=== PATIENT | male | born 1965 ===

== ENCOUNTER 2021-04-26 07:32 | Outpatient (REF) | payer OTHER, SELFPAY | END 2021-04-26 07:33 | disposition home or self-care (01) | LOC: HO.HOSX 07:32 | PROVIDERS: Visit Provider Physician Assistant | DX: Z13.89 Encounter for screening for other disorder (principal) ==

== ENCOUNTER 2021-04-27 07:54 | Outpatient (REF) | payer OTHER, SELFPAY ==
--- NOTE | ~2021-04-27 | XR_ITS ---
EXAMINATION: XR ELBOW, RIGHT XR ELBOW, LEFT CLINICAL INFORMATION: Pain. COMPARISON: Multiple priors, most recent left forearm radiographs dated 11/23/2014. TECHNIQUE: AP, oblique, and lateral views of the right and left elbow. FINDINGS: Right Elbow: No acute fracture or dislocation. No joint space narrowing or marginal osteophytes. No osseous erosion. No abnormal soft tissue calcification. No significant joint effusion. Left Elbow: No acute fracture or dislocation. No joint space narrowing or marginal osteophytes. No osseous erosion. No abnormal soft tissue calcification. No significant joint effusion. XR/XR elbow RT min 3V IMPRESSION: RIGHT ELBOW: Unremarkable examination. LEFT ELBOW: Unremarkable examination.
--- NOTE | ~2021-04-27 | XR_ITS ---
EXAMINATION: XR ELBOW, RIGHT XR ELBOW, LEFT CLINICAL INFORMATION: Pain. COMPARISON: Multiple priors, most recent left forearm radiographs dated 11/23/2014. TECHNIQUE: AP, oblique, and lateral views of the right and left elbow. FINDINGS: Right Elbow: No acute fracture or dislocation. No joint space narrowing or marginal osteophytes. No osseous erosion. No abnormal soft tissue calcification. No significant joint effusion. Left Elbow: No acute fracture or dislocation. No joint space narrowing or marginal osteophytes. No osseous erosion. No abnormal soft tissue calcification. No significant joint effusion. XR/XR elbow LT min 3V IMPRESSION: RIGHT ELBOW: Unremarkable examination. LEFT ELBOW: Unremarkable examination.
== END 2021-04-27 07:55 | disposition home or self-care (01) ==
LOC: HO.HOSX 07:54
PROVIDERS: Visit Provider Physician Assistant
DX: M19.021 Primary osteoarthritis, right elbow (principal); M77.11 Lateral epicondylitis, right elbow; M77.12 Lateral epicondylitis, left elbow
CPT/HCPCS: 73080; 99202; J1020

== ENCOUNTER 2021-05-14 09:22 | Outpatient (REF) | payer OTHER, SELFPAY ==
--- NOTE | ~2021-05-14 | XR_ITS ---
EXAMINATION: XR ELBOW, RIGHT XR ELBOW, LEFT CLINICAL INFORMATION: Pain. COMPARISON: Right and left elbow radiographs dated 04/27/2021. TECHNIQUE: AP, oblique, and lateral views of the right and left elbow. FINDINGS: Right Elbow: No acute fracture or dislocation. No joint space narrowing or marginal osteophytes. No osseous erosion. No significant joint effusion. No abnormal soft tissue calcification. Left Elbow: No acute fracture or dislocation. No joint space narrowing or marginal osteophytes. No osseous erosion. No abnormal soft tissue calcification. No significant joint effusion. XR/XR elbow LT min 3V IMPRESSION: RIGHT ELBOW: No acute osseous abnormality. LEFT ELBOW: No acute osseous abnormality.
--- NOTE | ~2021-05-14 | XR_ITS ---
EXAMINATION: XR ELBOW, RIGHT XR ELBOW, LEFT CLINICAL INFORMATION: Pain. COMPARISON: Right and left elbow radiographs dated 04/27/2021. TECHNIQUE: AP, oblique, and lateral views of the right and left elbow. FINDINGS: Right Elbow: No acute fracture or dislocation. No joint space narrowing or marginal osteophytes. No osseous erosion. No significant joint effusion. No abnormal soft tissue calcification. Left Elbow: No acute fracture or dislocation. No joint space narrowing or marginal osteophytes. No osseous erosion. No abnormal soft tissue calcification. No significant joint effusion. XR/XR elbow RT min 3V IMPRESSION: RIGHT ELBOW: No acute osseous abnormality. LEFT ELBOW: No acute osseous abnormality.
[2021-05-14 12:42] LABS: Alanine Aminotransferase 14 U/L (0-40); Albumin Level 4.2 g/dL (3.5-5.0); Alkaline Phosphatase 74 U/L (39-117); Anion Gap 13 (12-20); Aspartate Amino Transferase 14 U/L (5-37); Bilirubin Total 1.3 mg/dL (0.0-1.0); Blood Urea Nitrogen 11 mg/dL (9-16); Calcium 8.9 mg/dL (8.4-10.2); Carbon Dioxide 27 mmol/L (22-29); Chloride 106 mmol/L (96-108); Cholesterol 179 mg/dL; Estimated Glomerular Filt Rate > 60; Glucose Fasting 97 mg/dL (60-99); HDL Cholesterol 50 mg/dL; LDL Cholesterol Calculated 110 mg/dl; Potassium 4.6 mmol/L (3.3-5.1); Sodium 141 mmol/L (135-145); Total Protein 6.8 g/dL (6.5-8.0); Triglycerides 95 mg/dL
[2021-05-15 07:30] LABS: Estimated Average Glucose 126 mg/dL
== END 2021-05-14 09:23 | disposition home or self-care (01) ==
LOC: HO.HMGCX 09:22
PROVIDERS: PCP Internal Medicine; Visit Provider Physician Assistant
DX: Z00.01 Encounter for general adult medical examination with abnormal findings (principal); E11.9 Type 2 diabetes mellitus without complications; E78.5 Hyperlipidemia, unspecified; I10 Essential (primary) hypertension; K76.0 Fatty (change of) liver, not elsewhere classified; M25.522 Pain in left elbow; M25.521 Pain in right elbow
CPT/HCPCS: 36415; 73080; 80053; 80061; 83036

== ENCOUNTER 2021-06-08 13:02 | Emergency (ER) | payer OTHER, SELFPAY ==
--- NOTE | ~2021-06-08 | CT_ITS ---
EXAMINATION: CT HEAD WITHOUT CONTRAST CLINICAL INFORMATION: Diplopia headache COMPARISON: Head CT on 12/16/2013 TECHNIQUE: Contiguous axial imaging was performed from the skull base to vertex without intravenous administration of contrast. This CT examination was performed using dose optimization techniques as appropriate, variously including the following: *Automated exposure control *Adjustment of mA and/or kV according to patient size (this includes techniques or standardized protocols for targeted exams where dose is matched to indication/reason for exam; i.e. extremities or head) *Use of iterative reconstruction technique DLP: 751 mGy-cm FINDINGS: There is no evidence of acute intracranial hemorrhage or territorial infarction. No abnormal mass effect or midline shift is seen. Nolan to white matter differentiation is well preserved. No extra-axial fluid collections are identified. The ventricles are normal in size. There is no abnormal attenuation within the brain parenchyma. The osseous structures and soft tissues are normal. The mastoid air cells and visualized portions of the paranasal sinuses are well aerated. CT/CT head/brain wo con IMPRESSION: No acute intracranial pathology.
[2021-06-08 13:19] VITALS: BP 165/87; PULSE 90; RESP 18; TEMP 36.8; O2SAT 98; BMI 34.4
--- NOTE | 2021-06-08 18:22 | ED_ITS ---
HPI - Headache General Chief Complaint: Headache Stated Complaint: headache Time Seen by Provider: 06/08/21 17:53 Source: patient Mode of arrival: ambulatory Limitations: no limitations History of Present Illness HPI Narrative: 55-year-old male past medical history significant for migraines, anxiety, hypertension presents to the emergency department with migraine, nausea x3 days. According to patient he states he gets these frequently, however they usually subside after taking Tylenol/ibuprofen however this time and has not gone away in 3 days and it has been gradually worsening. He states he has also been having double vision and nausea X3days. He states that these symptoms have never happened to him in the past. He states that his headache is a 6/10 is localized to the right side it starts from the front and moves to the back of his head, it is intermittent in nature. He denies chest pain, shortness of breath, vomiting, abdominal pain, weakness, confusion. He states that he spoke to his primary care, which told him to come into the emergency department today. MD elicited complaint: migraine Onset (ago): day(s) (3) Onset description: gradually Location: right Severity: moderate Pain scale (0-10): 66 Related Data Home Medications Medication Instructions Recorded Confirmed diphenhydramine HCl 25 mg capsule 25 mg PO BEDTIME 03/29/21 (Benadryl) Previous Rx's Medication Instructions Recorded diclofenac sodium 1 % topical gel 2 g TOPICAL QID PRN #100 g 12/18/20 atorvastatin 20 mg tablet 20 mg PO DAILY #30 tab 05/06/21 lisinopril 10 mg tablet 10 mg PO DAILY #30 tab 05/06/21 [id number]-qumbgvbqsywkn-pacwfqux 1 cap PO Q6H PRN #20 cap 06/08/21 50 mg-300 mg-40 mg capsule (Fioricet) ondansetron 4 mg disintegrating 4 mg PO Q6-8H PRN #7 tab 06/08/21 tablet sumatriptan succinate 50 mg tablet 50 mg PO Q2H PRN #10 tab 06/08/21 (Imitrex) Allergies Allergy/AdvReac Type Severity Reaction Status Date / Time No Known Allergies Allergy Verified 06/08/21 13:18 [No Known Allergies*] Review of Systems Review of Systems: Constitutional : No Weight loss, No Fever, No Chills, No Night Sweats, No Fatigue, No Malaise Eyes: No Eye Pain, No Swelling, No Redness, No Foreign Body, No Discharge, No Vision Changes, + doubble vision Cardiovascular : No Chest Pain, No SOB, No Dyspnea on Exertion, No Orthopnea, No Edema, No Palpitations Respiratory : No Cough, No Sputum, No Wheezing, No Smoke Exposure, No Dyspnea Gastrointestinal : + Nausea, No Vomiting, No Diarrhea, No Constipation, No abdominal Pain, No Hematochezia, No Melena Genitourinary : no irregular bleeding, No Dysuria, No Urinary Frequency, No Hematuria, No Urinary Incontinence, No Urgency, No Flank Pain, No Urinary Flow Changes Musculoskeletal : No joint pain, No Myalgias, No Joint Swelling Skin : No Skin Lesions, No rash Neuro : No Weakness, No Numbness, No Paresthesias, No Loss of Consciousness, No Dizziness, + Headache Neurologic: Reports Abnormal speech present [facility] Past Medical History Attestation statement: The following information was validated with the patient. Source: old records reviewed and nursing notes reviewed Medical History Colonoscopy refused COVID-19 vaccine series declined Depression Diabetes mellitus Dyslipidemia Essential hypertension Fatty liver Herniated intervertebral disc of lumbar spine History of seborrheic dermatitis Lateral epicondylitis of both elbows Obesity (BMI 30.0-34.9) Surgical History History of nasal surgery Status post lumbar spinal fusion Family History Family History Father CAD (coronary artery disease) Mother Hypertension Lupus (systemic lupus erythematosus) Sister Mental health disorder Social History Social History Housing: Apartment Alcohol intake: never Patient Tobacco Use Status: Never used Tobacco e-Cigarette/Vaping Use: Never Used Second Hand Smoke Exposure: No Advance Directives: No Advance Directives Information Provided: Yes service: No Current occupational status: employed Physical Exam Vital Signs: Vital Signs: Last Vital Signs Temp 97.5 F 06/08/21 19:00 Pulse 83 06/08/21 19:00 Resp 16 06/08/21 19:00 BP 163/97 H 06/08/21 19:00 Pulse Ox 99 10/12/21 19:00 Body Mass Index 34.4 Const: General: cooperative Nutritional Appearance: average body habitus Orientation/consciousness: oriented to person, oriented to place and oriented to time Limitations: no limitations HENMT: Head: Yes normal to inspection Mouth: Normal oral and palatal mucosa present Eyes: General: appearance normal, both eyes and all related structures Pupils: Equal, round and reactive pupils present EOM: EOMs intact bilaterally Neck: Neck: Yes normal visual inspection and Yes full ROM Thyroid: Thyroid normal Lymphatic: no lymphadenopathy noted Resp: Effort & Inspection: normal respiratory effort and able to speak in complete sentences Auscultation: clear to auscultation bilaterally Cardio: Palpation: normal PMI Rate: regular rate Rhythm: regular rhythm and abnormal rhythm Heart sounds: S1 normal heart sound present and S2 normal heart sound present GI: Inspection: Yes normal to inspection Palpation (GI): Soft to palpation and nontender : General: Yes no CVA tenderness Back/Spine/Pelvis: Back: no CVA tenderness Neuro: General: oriented to person, oriented to place and oriented to time Cranial nerves: Yes CN's II-XII intact bilaterally and Yes Equal, round and reactive pupils present Cognition (Neuro): normal cognition Speech: Abnormal speech present Gait exam (Neuro): Normal gait present Motor exam (neuro): 5/5 motor strength present throughout Sensory Exam: Normal double simultaneous stimulation for sensation Coordination: dkdksi-xu-[id number] test normal, rxhk-lh-glvn test normal and tandem gait normal Extrem: General: Yes normal to inspection, Yes full ROM and Yes no pedal edema Psych: Mental Status: mental status grossly normal Course Reevaluation(s) Reevaluation #1: Upon re-evaluation, patient is feeling better after administration of Imitrex, Fioricet and Zofran. CT scan shows no acute findings. No ICH, no signs of stroke. At this time was likely diagnosis is complex migraine. Patient will be discharged home with Fioricet, Imitrex, Zofran. Patient is safe for discharge home. Time: 19:11 MDM - Headache MDM Narrative Medical decision making narrative: 55-year-old male has medical history significant for anxiety, migraines, hypertension presents to the emergency department with complaints of migraine and nausea x3 days. He states that this migraine is not like his typical migraine. He states his typical migraine goes away after taking ibuprofen, however this one has not gone away. He also reports diplopia and nausea associated with it. He states he mention this to his primary care provider, who told him to come into the emergency department today, and get a CT scan. He denies fevers, chills, weakness, chest pain, shortness of breath. No abnormalities noted on physical examination. He is neurologically intact, no focal neurological deficits. Steady gait, rhlpfr-xb-kanp normal, gsex-dv-qaoa normal. He has 5/5 strength upper and lower extremities. Unlikely a cerebellar infarct. There is no trauma, or recent falls unlikely ICH. Patient does not report chest pain, or shoulder pain unlikely ACS. Based off patient's symptoms, and physical exam findings this is likely a complex headache. Imaging Data CT scan - head: Attestation: I personally reviewed and interpreted this imaging study as follows: Radiologist's impression: FINDINGS: There is no evidence of acute intracranial hemorrhage or territorial infarction. No abnormal mass effect or midline shift is seen. Nolan to white matter differentiation is well preserved. No extra-axial fluid collections are identified. The ventricles are normal in size. There is no abnormal attenuation within the brain parenchyma. The osseous structures and soft tissues are normal. The mastoid air cells and visualized portions of the paranasal sinuses are well aerated. ? CT/CT head/brain wo con IMPRESSION: No acute intracranial pathology. Discharge Plan Discharge Clinical Impression: Migraine Patient Disposition: Home, Self-Care Instructions: Migraine Headache (ED) Prescriptions: New sumatriptan succinate [Imitrex] 50 mg tablet 50 mg PO Q2H PRN (Reason: migraine headache) Qty: 10 RF: 0 ondansetron 4 mg tablet,disintegrating 4 mg PO Q6-8H PRN (Reason: nausea and vomiting) Qty: 7 RF: 0 fislsuozbv-ajbjzmytexxdf-xplp [Fioricet] 50-300-40 mg capsule 1 cap PO Q6H PRN (Reason: headache) Qty: 20 RF: 0 No Action lisinopril 10 mg tablet 10 mg PO DAILY Qty: 30 RF: 5 atorvastatin 20 mg tablet 20 mg PO DAILY Qty: 30 RF: 5 diclofenac sodium 1 % gel 2 g topical QID PRN (Reason: pain) Qty: 100 RF: 1 diphenhydramine HCl [Benadryl] 25 mg capsule 25 mg PO BEDTIME RF: 0 Stand Alone Forms: Work/School Release Interventions: ED Discharge Assessment Last Done: 06/08/21 20:17 Discharge Date/Time: 06/08/21 20:18
[2021-06-08] MEDS: Butalb/Acetamin/Caff 50/325/40 TABLET 1 TAB PO (18:39)
[2021-06-08] MEDS: Ondansetron ODT 4 MG TAB.RAPDIS TRANSLINGU (18:40)
[2021-06-08 19:00] VITALS: BP 163/97; PULSE 83; RESP 16; TEMP 36.4; O2SAT 99
== END 2021-06-08 20:18 | disposition home or self-care (01) ==
PROVIDERS: Emergency Provider Internal Medicine; PCP Internal Medicine
DX: G43.909 Migraine, unspecified, not intractable, without status migrainosus (principal); Z79.899 Other long term (current) drug therapy
CPT/HCPCS: 70450; 96372; 99284; J3030

== ENCOUNTER 2021-07-12 14:02 | Outpatient (REF) | payer OTHER, SELFPAY | END 2021-07-12 14:03 | disposition home or self-care (01) | LOC: HO.LNP 14:02 | PROVIDERS: Visit Provider Internal Medicine | DX: Z20.822 Contact with and (suspected) exposure to COVID-19 (principal); J06.9 Acute upper respiratory infection, unspecified | CPT/HCPCS: U0003; U0005 ==

== ENCOUNTER 2022-03-01 11:50 | Outpatient (REF) | payer OTHER, SELFPAY ==
[2022-03-01 13:56] LABS: MANUAL DIFF FLAG NO
[2022-03-01 14:21] LABS: Basophils Percent Auto 0.6 % (0-2); Eosinophils Absolute Auto 0.1 X10*3/uL (0.0-0.4); Hematocrit 43.4 % (42.0-52.0); Hemoglobin 14.4 g/dl (14.0-18.0); Imm Gran Abs Auto 0.02 X10*3/uL (0.00-0.03); Imm Gran Pct Auto 0.3 % (0.0-0.4); Lymphocytes Absolute Auto 2.1 X10*3/uL (1.2-4.9); Lymphocytes Percent Auto 30.8 % (20-40); Mean Corpuscular HGB Conc 33.2 g/dl (31.0-36.0); Mean Corpuscular Hemoglobin 30.1 pg (27.0-33.0); Mean Corpuscular Volume 90.8 fL (80.0-98.0); Mean Platelet Volume 10.4 fL (9.4-12.4); Monocytes Absolute Auto 0.5 X10*3/uL (0.1-1.2); Monocytes Percent Auto 7.5 % (2-11); Neutrophils Absolute Auto 4.1 x10*3/uL (2.0-8.3); Neutrophils Percent Auto 59.8 % (45-73); Platelet Count 224 X10*3/uL (160-400); Red Blood Count 4.78 X10*6/uL (4.60-5.80); Red Cell Distribution Width 12.4 % (11.0-16.0); White Blood Count 6.9 X10*3/uL (4.8-10.8)
[2022-03-01 14:35] LABS: Alanine Aminotransferase 25 U/L (0-40); Anion Gap 13 (12-20); Aspartate Amino Transferase 23 U/L (5-37); Blood Urea Nitrogen 14 mg/dL (9-16); Calcium 9.1 mg/dL (8.4-10.2); Carbon Dioxide 26 mmol/L (22-29); Chloride 106 mmol/L (96-108); Cholesterol 176 mg/dL; Estimated Glomerular Filt Rate > 60; Glucose Fasting 122 mg/dL (60-99); HDL Cholesterol 46 mg/dL; LDL Cholesterol Calculated 115 mg/dl; Potassium 4.6 mmol/L (3.3-5.1); Sodium 140 mmol/L (135-145); Triglycerides 75 mg/dL
[2022-03-01 14:37] LABS: Estimated Average Glucose 134 mg/dL; Hemoglobin A1c % 6.3 %
[2022-03-01 14:59] LABS: Vitamin D 25-OH Total 18.5 ng/mL (>30)
== END 2022-03-01 11:51 | disposition home or self-care (01) ==
LOC: HO.HMGCLDS 11:50
PROVIDERS: PCP Internal Medicine; Visit Provider Internal Medicine
DX: E66.9 Obesity, unspecified (principal); E78.5 Hyperlipidemia, unspecified; I10 Essential (primary) hypertension; K76.0 Fatty (change of) liver, not elsewhere classified; E11.9 Type 2 diabetes mellitus without complications
CPT/HCPCS: 36415; 80048; 80061; 82306; 83036; 84450; 84460; 85025

== ENCOUNTER 2022-09-09 10:11 | Outpatient (REF) | payer OTHER, SELFPAY ==
[2022-09-09 12:32] LABS: Anion Gap 12 (12-20); Blood Urea Nitrogen 13 mg/dL (9-16); Calcium 9.2 mg/dL (8.4-10.2); Carbon Dioxide 27 mmol/L (22-29); Chloride 105 mmol/L (96-108); Cholesterol 168 mg/dL; Estimated Glomerular Filt Rate > 60; Glucose Fasting 131 mg/dL (60-99); HDL Cholesterol 48 mg/dL; LDL Cholesterol Calculated 93 mg/dl; Potassium 4.1 mmol/L (3.3-5.1); Sodium 140 mmol/L (135-145); Triglycerides 139 mg/dL
[2022-09-09 12:49] LABS: Vitamin D 25-OH Total 45.2 ng/mL (>30)
[2022-09-09 17:16] LABS: Creatinine Urine 198.32 mg/dL
== END 2022-09-09 10:12 | disposition home or self-care (01) ==
LOC: HO.HMGCLDS 10:11
PROVIDERS: PCP Internal Medicine; Visit Provider Internal Medicine
DX: F32.9 Major depressive disorder, single episode, unspecified (principal); I10 Essential (primary) hypertension; M25.541 Pain in joints of right hand; M25.542 Pain in joints of left hand; E55.9 Vitamin D deficiency, unspecified; E66.9 Obesity, unspecified
CPT/HCPCS: 36415; 80048; 80061; 82043; 82306

== ENCOUNTER 2023-05-15 13:02 | Outpatient (AMB) | payer OTHER, SELFPAY ==
[2023-05-15 13:13] VITALS: BP 120/80; PULSE 75; O2SAT 97; BMI 36.0
--- NOTE | 2023-05-15 13:13 | MHC.PC.OV ---
Vital Signs 05/15/23 13:13 Height 5 ft 11 in Weight 258 lb BMI 36.0 BP 120/80 Blood Pressure Location Lt brachial Position Sitting Pulse 75 Pulse Source Pulse Oximeter Pulse Oximetry (%) 97 Oxygen Delivery Method Room Air Intake Visit Reasons: 6m follow up bp Intake Note: Pt is here today for his 6mo. Allergies No Known Allergies [No Known Allergies*] Allergy (Verified 05/15/23 13:41) Medication List - Last Reconciled 05/15/23 by Amber Adam MD atorvastatin 20 mg PO DAILY blood sugar diagnostic (FreeStyle Lite Strips) test blood sugar once a day blood-glucose meter (FreeStyle Lite Meter kit) check fasting blood sugar once a day as directed diclofenac sodium 1% 2 grams topical QID PRN lancets (FreeStyle Lancets) test blood sugar once a day lisinopril 10 mg PO DAILY metformin ER 500 mg PO QAM sertraline 50 mg PO DAILY trazodone 50 mg PO BEDTIME PRN Tobacco use date assessed: 05/15/23 Dental Screening Dental Screen Date: 05/15/23 Did you have a dental visit in the last 12 months?: Yes Did you have a dental problem in the last 6 months where you did not have access to dental care?: No Was dental information given to patient?: Patient has dentist HPI 6m follow up bp HPI Details 57-year-old male with diabetes mellitus, dyslipidemia, hypertension, here today for his follow-up. He has been compliant with taking his medications and following recommended diet, tries to stay active but no regular exercise. His hemoglobin A1c today is at 6.2%, and fasting lipids at approximately 6 months ago was within normal limits. [facility] Medical History Diabetes mellitus, without long-term current use of insulin Vitamin D deficiency COVID-19 vaccine series declined Colonoscopy refused Depression Obesity (BMI 30.0-34.9) Herniated intervertebral disc of lumbar spine Fatty liver History of seborrheic dermatitis Dyslipidemia Essential hypertension Surgical History History of nasal surgery Status post lumbar spinal fusion Family History Father CAD (coronary artery disease) Mother Hypertension Lupus (systemic lupus erythematosus) Sister Mental health disorder Social History Housing: Apartment Alcohol intake: never Patient Tobacco Use Status: Never used Tobacco e-Cigarette/Vaping Use: Never Used Second Hand Smoke Exposure: No service: No Current occupational status: employed Cognitive needs: No Hearing needs: No Vision needs: No Questionnaire Thrive Questionnaire Date Thrive assessed: 12/07/21 Review of Systems Const Denies fever(s), Denies headache(s), Denies malaise and Denies poor appetite ENT Denies dizziness, Denies headache(s) and Denies nasal congestion Card Denies chest pain, Denies lightheadedness and Denies dyspnea Resp Denies cough and Denies dyspnea GI Denies abdominal pain, Denies change in bowel habits, Denies heartburn and Denies nausea Musc Details: Gets occasional pain stiffness in toes of both feet specially worse at night and early in the morning when he gets up, eases up once he starts moving around Skin/Breast Denies rash Neuro Denies dizziness and Denies headache(s) Psych Reports as per HPI Endo Reports no additional complaints Robles/Lymph Reports no additional complaints Aller/Immun Reports no additional complaints Physical exam (Primary Care) Vital Signs: Last Vital Signs Pulse 75 05/15/23 13:13 BP 120/80 05/15/23 13:13 Pulse Ox 97 05/15/23 13:13 Oxygen Delivery Method Room Air 05/15/23 13:13 BMI result Body Mass Index 36.0 BMI Assessment/Plan discussion: High BMI High, discussed plan: lifestyle, weight reduction, dietary and physical activity Tobacco/Smoking Status: Tobacco use Status Tobacco use date assessed 05/15/23 05/15/23 13:16 Patient Tobacco Use Status Never used Tobacco 05/15/23 13:16 e-Cigarette/Vaping Use Never Used 05/15/23 13:16 Thrive Assessment: Date of Thrive Assessment Date Thrive assessed 12/07/21 05/15/23 13:16 Const General: comfortable, no acute distress and alert Nutritional Appearance: obese Orientation/consciousness: patient oriented x3 HENMT Mouth: Normal oral and palatal mucosa present, oropharynx normal and moist mucous membranes Eyes General: appearance normal, both eyes and all related structures Neck Neck: Yes full ROM, Yes no lymphadenopathy and Yes supple Resp Auscultation: clear to auscultation bilaterally Cardio Palpation: normal PMI Rhythm: regular rhythm Heart sounds: S1 normal heart sound present and S2 normal heart sound present GI Palpation (GI): Soft to palpation, nontender and no guarding General: Yes no CVA tenderness Male General Exam: Yes normal external exam Back/Spine/Pelvis Back: no CVA tenderness Skin General skin exam: no rashes or lesions noted Neuro General: patient oriented x3, gait normal, tone normal, moves all extremities, Normal light touch and pain sensation, no focal motor deficits and CN's II-XI intact bilaterally Extrem Other: No swelling in toes of both feet, intact sensation, normal range of motion General: Yes full ROM, Yes no joint enlargement, Yes no pedal edema, Yes no calf tenderness and Yes normal gait Psych Appearance: grossly normal Mental Status: mental status grossly normal Attitude: cooperative Results AMB Hemoglobin A1c AMB Hemoglobin A1c 6.2 % Last Edit by Patricia Payne CMA on 05/15/23 13:29 Results Reviewed Results Reviewed: Laboratory Last Values Hgb A1c (Clinic) 6.2 % (4.0-6.0) H 05/15/23 13:28 Assessment and Plan Assessment & Plan (1) Diabetes mellitus, without long-term current use of insulin: Code(s): E11.9 - Type 2 diabetes mellitus without complications Plan: Recent lab results reviewed with patient, with sugar and hemoglobin A1c stable and at goal. Continue with metformin ER 500 mg daily in a.m., refill sent on his lancets and test strips. continue to check fasting blood sugar at home, maintain log and bring to next appointment for review. Reinforced diabetic diet and regular exercise with patient. Counseled regarding importance of yearly diabetes retinopathy screening, referred back to see Dr. Marie for his retinopathy screening.. Patient advised to inspect feet daily, for any signs of injury, callus or infection. Compliance with diet and regular exercise again stressed. Blood pressure goal is less than 130/80, goal LDL is less than 100 and goal hemoglobin A1c is less than 7% follow-up appointment made in--30-months, after fasting labs done. (2) Diabetic retinopathy screening: Code(s): Z13.5 - Encounter for screening for eye and ear disorders Plan: Referral to Dr. Marie ordered (3) Essential hypertension: Code(s): I10 - Essential (primary) hypertension Plan: Blood pressure at goal of less than 130/80. Continue with lisinopril 10 mg daily. Reinforced importance of following a low sodium diet, getting regular exercise, and lowering stress levels. Reminded to get fasting labs done (4) Dyslipidemia: Code(s): E78.5 - Hyperlipidemia, unspecified Plan: Continued on atorvastatin 20 mg daily, reminded to get good fasting labs done, already ordered Orders: Orders AMB Hemoglobin A1c 05/15/23 E11.9 - Type 2 diabetes mellitus without complications Referrals Ophthalmology Referral E11.9 - Type 2 diabetes mellitus without complications, Z13.5 - Encounter for screening for eye and ear disorders Medications: Refilled lancets (FreeStyle Lancets) test blood sugar once a day 100 ea 3RF E11.9 - Type 2 diabetes mellitus without complications blood sugar diagnostic (FreeStyle Lite Strips) test blood sugar once a day 100 ea 3RF E11.9 - Type 2 diabetes mellitus without complications Coding Level of Care Code Est Pt Level 3 (10317) Diagnoses Diabetes mellitus, without long-term current use of insulin E11.9 Diabetic retinopathy screening Z13.5 Essential hypertension I10 Dyslipidemia E78.5
== END 2023-05-15 13:58 | disposition home or self-care (01) ==
PROVIDERS: Visit Provider Internal Medicine
DX: E11.9 Type 2 diabetes mellitus without complications (principal)
CPT/HCPCS: 83036; 99213

== ENCOUNTER 2023-08-01 10:58 | Outpatient (AMB) | payer OTHER, SELFPAY ==
--- NOTE | 2023-08-01 11:15 | A.OFFPC_ITS ---
Vital Signs 08/01/23 11:16 Height 5 ft 11 in Weight 255 lb 6 oz BMI 35.6 BP 140/86 H Blood Pressure Location Rt brachial Position Sitting Pulse 89 Pulse Source Pulse Oximeter Pulse Oximetry (%) 95 Oxygen Delivery Method Room Air Intake Visit Reasons: Annual PE Intake Note: Pt is here for his Annual PE Allergies No Known Allergies [No Known Allergies*] Allergy (Verified 08/01/23 12:07) Medication List - Last Reconciled 08/01/23 by Amber Adam MD atorvastatin 20 mg PO DAILY blood sugar diagnostic (FreeStyle Lite Strips) test blood sugar once a day blood-glucose meter (FreeStyle Lite Meter kit) check fasting blood sugar once a day as directed diclofenac sodium 1% 2 grams topical QID PRN lancets (FreeStyle Lancets) test blood sugar once a day lisinopril 10 mg PO DAILY metformin ER 500 mg PO QAM sertraline 50 mg PO DAILY trazodone 50 mg PO BEDTIME PRN Tobacco use date assessed: 08/01/23 Dental Screening Dental Screen Date: 08/01/23 Did you have a dental visit in the last 12 months?: No Did you have a dental problem in the last 6 months where you did not have access to dental care?: No Was dental information given to patient?: Patient has dentist HPI Annual PE HPI Details 58-year-old male with diabetes mellitus, hypertension, depression, dyslipidemia obesity, here today for his physical exam. He currently sees of the psychiatric nurse practitioner for his depression, stable controlled on present medications. He is overdue for his colon cancer screening but has repeatedly refused colonoscopy procedure. He has been compliant with taking his medications, and following recommended diet, but admits to not getting exercise much due to joint pains. Patient who accompanies him today, states that patient has been snoring a lot and has had episodes where he would stop breathing when asleep. He also has been complaining of feeling more tired than usual and and has been needing to take a nap during the day. [facility] Medical History Diabetes mellitus, without long-term current use of insulin Vitamin D deficiency COVID-19 vaccine series declined Colonoscopy refused Depression Obesity (BMI 30.0-34.9) Herniated intervertebral disc of lumbar spine Fatty liver History of seborrheic dermatitis Dyslipidemia Essential hypertension Surgical History History of nasal surgery Status post lumbar spinal fusion Family History Father CAD (coronary artery disease) Mother Hypertension Lupus (systemic lupus erythematosus) Sister Mental health disorder Social History Housing: Apartment Alcohol intake: never Patient Tobacco Use Status: Never used Tobacco e-Cigarette/Vaping Use: Never Used Second Hand Smoke Exposure: No service: No Current occupational status: employed Cognitive needs: No Hearing needs: No Vision needs: No Questionnaire PHQ-9 Over the last 2 weeks, how often have you been bothered by any of the following problems? 1. Little interest or pleasure in doing things: several days 2. Feeling down, depressed, or hopeless: several days 3. Trouble falling or staying asleep, or sleeping too much: several days 4. Feeling tired or having little energy: several days 5. Poor appetite or overeating: not at all 6. Feeling bad about yourself - or that you are a failure or have let yourself or your family down: several days 7. Trouble concentrating on things, such as reading the newspaper or watching television: nearly every day 8. Moving or speaking so slowly that other people could have noticed. Or the opposite - being so fidgety or restless that you have been moving around a lot more than usual: not at all 9. Thoughts that you would be better off or of hurting yourself in some way: several days Total score: 9 Depression Screening Interpretation: Positive Depression Screening Follow-up: Existing condition, In treatment and Community Mental Health Worker F/U Depression Screening Done: Yes 58283 - PHQ-9 Billing: Yes (Followed by Diandra Hodges) Source: Developed by Drs. Soham Ochoa, Jeaneth Maurice, Moises Larios and colleagues, with an educational gigi from [employer]. Thrive Questionnaire Date Thrive assessed: 08/01/23 I am a: Patient What is your living situation today?: I have a steady place to live Within the past 12 months, did the food you bought not last and you didn't have the money to get more?: Never true Within the past 12 months, did you worry whether your food would run out before you got money to buy more?: Sometimes True Do you have trouble paying for medicines?: No Do you have trouble getting transportation to medical appointments?: No Do you have trouble paying your heating and electricity bill?: Yes Do you have trouble taking care of your child, family member or friend?: No Do you have trouble with day-to-day activities such as bathing, preparing meals, shopping, managing finances, etc.?: No Are you currently unemployed and looking for a job?: Yes Are you interested in more education?: No AUDIT C Alcohol Use Questionnaire (AUDIT-C) 1. How often do you have a drink containing alcohol?: Never Total Score: 0 DAYANNA-7 AMB Questionnaire DAYANNA-7 Date DAYANNA - 7 assessed: 08/01/23 Feeling nervous, anxious, or on edge: 1 = Several days Not being able to stop or control worryin = Several days Worrying too much about different things: 1 = Several days Trouble relaxin = Several days Being so restless that it is hard to sit still: 0 = Not at all Becoming easily annoyed or irritable: 1 = Several days Feeling afraid as if something awful might happen: 0 = Not at all Total DAYANNA-7 score (0-4 normal; 5-9 mild; 10-14 moderate; 15-21 severe): 5 Source: Developed by Drs. Soham Ochoa, Jeaneth Maurice, Moises Larios and colleagues, with an educational gigi from [employer]. DAYANNA-7 Assessment Billing DAYANNA-7 Assessment Tool: DAYANNA-7 Assessment 02490 Review of Systems Const Reports as per HPI, Denies fever(s), Denies headache(s), Denies malaise and Denies poor appetite Eyes Details: Will be scheduling appointment with Dr. Marie for his diabetic retinopathy exam ENT Denies dizziness, Denies headache(s) and Denies nasal congestion Card Denies chest pain, Denies lightheadedness and Denies dyspnea Resp Denies cough and Denies dyspnea GI Denies abdominal pain, Denies change in bowel habits, Denies heartburn and Denies nausea Reports no additional complaints Musc Details: Gets occasional pain stiffness in toes of both feet specially worse at night and early in the morning when he gets up, eases up once he starts moving around Skin/Breast Denies rash Neuro Denies dizziness and Denies headache(s) Psych Reports as per HPI Endo Details: Sees Ro Park in [place] podiatry, has diabetic shoes, occasional numbness in toes Reports no additional complaints Robles/Lymph Reports no additional complaints Aller/Immun Reports no additional complaints Physical exam (Primary Care) Vital Signs: Last Vital Signs Pulse 89 08/01/23 11:16 BP 140/86 H 08/01/23 11:16 Pulse Ox 95 08/01/23 11:16 Oxygen Delivery Method Room Air 08/01/23 11:16 BMI result Body Mass Index 35.6 BMI Assessment/Plan discussion: High BMI High, discussed plan: lifestyle, weight reduction, dietary and physical activity Tobacco/Smoking Status: Tobacco use Status Tobacco use date assessed 08/01/23 08/01/23 11:26 Patient Tobacco Use Status Never used Tobacco 08/01/23 11:18 e-Cigarette/Vaping Use Never Used 08/01/23 11:18 PHQ-9: PHQ-9 Score PHQ-9: Total score 9 08/01/23 12:17 Depression Screening Interpretation: Positive Depression Screening Follow-up: Existing condition, In treatment and Community Mental Health Worker F/U Thrive Assessment: Date of Thrive Assessment Date Thrive assessed 08/01/23 08/01/23 12:12 Const General: comfortable, no acute distress and alert Nutritional Appearance: obese Orientation/consciousness: patient oriented x3 HENMT Mouth: Normal oral and palatal mucosa present, oropharynx normal and moist mucous membranes Eyes General: appearance normal, both eyes and all related structures Neck Neck: Yes full ROM, Yes no lymphadenopathy and Yes supple Resp Auscultation: clear to auscultation bilaterally Cardio Palpation: normal PMI Rhythm: regular rhythm Heart sounds: S1 normal heart sound present and S2 normal heart sound present GI Palpation (GI): Soft to palpation, nontender and no guarding General: Yes no CVA tenderness Male General Exam: Yes normal external exam Back/Spine/Pelvis Back: no CVA tenderness Skin General skin exam: no rashes or lesions noted Neuro General: patient oriented x3, gait normal, tone normal, moves all extremities, Normal light touch and pain sensation, no focal motor deficits and CN's II-XI intact bilaterally Extrem Other: No swelling in toes of both feet, intact sensation, normal range of motion General: Yes full ROM, Yes no joint enlargement, Yes no pedal edema, Yes no calf tenderness and Yes normal gait Psych Appearance: grossly normal Mental Status: mental status grossly normal Attitude: cooperative Office Procedures Flu Questionnaire Does the patient have a severe egg allergy?: No Does the patient have severe life threatening allergies?: No Does the patient have a fever or illness today?: No Has the patient ever had Guillain-Sewell Syndrome?: No Has the patient ever had any past reaction to a flu shot?: No Immunizations flu vacc [id number] 6mos up(PF) 60 mcg(15 mcgx4)/0.5 mL IM syringe Performing Provider: Amber Adam MD Performing Location: [facility] Administered by: Ellyn Good CMA on 08/01/23 12:05 Dose Route Admin Location Dispensed Lot Number Expiration Date NDC Job Order Clerk 0.5 mL IM Left Deltoid 0.5 mL [id number] 02/25/24 [id number] [employer] VIS Given Date VIS Provided VIS Publication Date 08/01/23 Single Vaccine 21 Eligibility Eligibility Date Funding Source Not [facility] Eligible 08/01/23 Private Assessment and Plan Assessment & Plan (1) Annual visit for general adult medical examination with abnormal findings: Code(s): Z00.01 - Encounter for general adult medical examination with abnormal findings Plan: Will check appropriate labs. Recommended dental visit every 6 months and regular eye exams, yearly. He sees Dr. Marie. Take adequate calcium in diet and vitamin-D 3 at 2000 IU per cap once a day, in addition to weight- bearing exercises to help maintain good muscle tone and weight control. Instructed to do self testicular exam to check for any mass. Flu vaccine given today. Declined getting COVID booster, reminded to get his shingles vaccination. Declined colon cancer screening with either colonoscopy or Cologuard testing (2) Essential hypertension: Code(s): I10 - Essential (primary) hypertension Plan: Blood pressure not at goal of less than 130/80. Will continue on lisinopril 10 mg daily. Reinforced importance of following a low sodium diet, getting regular exercise, and lowering stress levels. Follow-up in 4 month to check blood pressure (3) Diabetes mellitus, without long-term current use of insulin: Code(s): E11.9 - Type 2 diabetes mellitus without complications Plan: Fasting labs ordered today. continue to check fasting blood sugar at home, maintain log and bring to next appointment for review. Reinforced diabetic diet and regular exercise with patient. Counseled regarding importance of yearly diabetes retinopathy screening sees Dr. Marie.. Patient advised to inspect feet daily, for any signs of injury, callus or infection. Compliance with diet and regular exercise again stressed. Blood pressure goal is less than 130/80, goal LDL is less than 100 and goal hemoglobin A1c is less than 7% follow-up appointment made in--4-months (4) Dyslipidemia: Code(s): E78.5 - Hyperlipidemia, unspecified Plan: Fasting lipid panel ordered, continue with atorvastatin 20 mg daily in addition to adhering to a low-cholesterol diet and getting regular exercise. (5) Obesity (BMI 30.0-34.9): Code(s): E66.9 - Obesity, unspecified Plan: Your BMI is above the ideal range. I deal BMI is between 18.5- 24. BMI is calculated from you height and weight. Weight gain happens when you taken more calories than you burn off. Discussed need to increase activity and weight reduction. Recommended focusing on improving health instead of dieting. Mediterranean diet is a healthy diet that helps, limit food high in fat, sugar, and calories. Eat slowly, pay attention to portion sizes, plan your meals ahead of time, start regular physical activity, at least 150 minutes of moderate intensity exercise, or 90 minutes per week of vigorous exercise. Keeping a food diary, tracking what you eat and your physical activity can help assess what improvements you can make. There are many health problems associated with being overweight/obese, so it is important to improve your diet and exercise. There are medications and surgical options available, but Lifestyle changes are the 1st step. (6) Loud snoring: Code(s): R06.83 - Snoring Plan: Referred for evaluation of possible obstructive sleep apnea. In the meantime at patient advised to try to lose weight, and sleep on his side (7) Witnessed apneic spells: Code(s): R06.81 - Apnea, not elsewhere classified Plan: Referred to sleep clinic for evaluation of obstructive sleep apnea (8) COVID-19 vaccine series declined: Code(s): Z28.21 - Immunization not carried out because of patient refusal (9) Colonoscopy refused: Code(s): Z53.20 - Procedure and treatment not carried out because of patient's decision for unspecified reasons (10) Depression: Code(s): F32.9 - Major depressive disorder, single episode, unspecified Qualifiers: Depression Type: major depressive disorder Major depression recurrence: recurrent Active/Remission status: remission status unspecified Qualified Code(s): F33.9 - Major depressive disorder, recurrent, unspecified Plan: Currently being followed by psych nurse practitioner in [place]., on sertraline 50 mg once a day and trazodone 50 mg at bedtime Orders: Orders Hemoglobin A1c 08/01/23 E11.9 - Type 2 diabetes mellitus without complications Influenza [id number] Immunization 08/01/23 Z23 - Encounter for immunization Referrals Sleep Medicine Referral R06.83 - Snoring, R06.81 - Apnea, not elsewhere classified, E66.9 - Obesity, unspecified Coding Level of Care Code Est Pt Prev Care 40-64y(76735) Diagnoses Annual visit for general adult medical examination with abnormal findings Z00.01 Essential hypertension I10 Diabetes mellitus, without long-term current use of insulin E11.9 Dyslipidemia E78.5 Obesity (BMI 30.0-34.9) E66.9 Loud snoring R06.83 Witnessed apneic spells R06.81 COVID-19 vaccine series declined Z28.21 Colonoscopy refused Z53.20 Recurrent major depressive disorder, remission status unspecified F33.9 Depression Type: major depressive disorder Major depression recurrence: recurrent Active/Remission status: remission status unspecified Additional Codes DAYANNA-7 Assessment Billing - DAYANNA-7 Assessment Tool: DAYANNA-7 Assessment [id number] ([id number])
[2023-08-01 11:16] VITALS: BP 140/86; PULSE 89; O2SAT 95; BMI 35.6
== END 2023-08-01 12:29 | disposition home or self-care (01) ==
PROVIDERS: Visit Provider Internal Medicine
DX: Z00.00 Encounter for general adult medical examination without abnormal findings (principal); E11.9 Type 2 diabetes mellitus without complications; F33.9 Major depressive disorder, recurrent, unspecified; I10 Essential (primary) hypertension; E78.5 Hyperlipidemia, unspecified; E66.9 Obesity, unspecified; R06.83 Snoring; R06.81 Apnea, not elsewhere classified; Z28.21 Immunization not carried out because of patient refusal; Z53.20 Procedure and treatment not carried out because of patient's decision for unspecified reasons
CPT/HCPCS: 90471; 90686; 96127; 99396

== ENCOUNTER 2023-08-01 12:25 | Outpatient (REF) | payer OTHER, SELFPAY ==
[2023-08-01 16:16] LABS: Estimated Average Glucose 137 mg/dL; Hemoglobin A1c % 6.4 % (<6.0)
[2023-08-01 16:22] LABS: Alanine Aminotransferase 17 U/L (0-40); Anion Gap 13 (12-20); Aspartate Amino Transferase 18 U/L (5-37); Blood Urea Nitrogen 14 mg/dL (9-16); Calcium 9.5 mg/dL (8.4-10.2); Carbon Dioxide 27 mmol/L (22-29); Chloride 103 mmol/L (96-108); Cholesterol 176 mg/dL (<200); Estimated Glomerular Filt Rate > 60; Glucose Fasting 126 mg/dL (60-99); HDL Cholesterol 49 mg/dL (>40); LDL Cholesterol Calculated 109 mg/dL (<100); Potassium 4.3 mmol/L (3.3-5.1); Sodium 139 mmol/L (135-145); Triglycerides 93 mg/dL (<150)
[2023-08-01 16:31] LABS: Creatinine Urine 218.95 mg/dL; Microalbum/Creatinine Ratio Ur 4.5 ug/mg cr (<30)
== END 2023-08-01 12:26 | disposition home or self-care (01) ==
LOC: HO.HMGCLDS 12:25
PROVIDERS: PCP Internal Medicine; Visit Provider Internal Medicine
DX: M25.541 Pain in joints of right hand (principal); M25.542 Pain in joints of left hand; I10 Essential (primary) hypertension; E78.5 Hyperlipidemia, unspecified; E11.9 Type 2 diabetes mellitus without complications
CPT/HCPCS: 36415; 80048; 80061; 82043; 82570; 83036; 84450; 84460

== ENCOUNTER 2023-10-06 13:06 | Outpatient (AMB) | payer OTHER, SELFPAY ==
--- NOTE | 2023-10-06 13:09 | A.OFFVIS_ITS ---
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 Pt's reports patient snores very loudly, and she witnessed apnea spells, disrupted breathing and gasping. Pt reports non refreshing sleep with daytime sleepiness. Sleep questionnaire: Have you ever been diagnosed with a sleep disorder? Insomnia. Have you ever had a sleep study in the past? No. Have you ever been treated for a sleep disorder? Do you take medications for a sleep disorder? Trazodone 50 mg. Do you snore? Yes. Do you wake up gasping at night? No. Do you have episodes of apneas? Yes. If yes, are they witnessed? Yes. Do you have episodes of nocturnal chest pain or dyspnea? No. Do you have difficulty initiating sleep? Yes. Do you have difficulty maintaining sleep? Yes. Do you wake up tired? Yes. Do you have headaches upon awakening? Yes, sometimes. Do you wake up with dry mouth or throat? Yes. Do you have GERD? No. Do you have nocturia? Yes. Do you have nocturnal leg cramps? No. Do you have symptoms of restless legs? No. Do you act out your dreams? No. Sleep hygiene questionnaire: What is your usual sleep routine? Usual bedtime is at 11:30 pm; Usual wake up time is at 6-7 am. Do you take naps? No. Is your sleep environment cool, dark, and quiet? Yes. Do you exercise? Yes. walking. Do you take caffeine or other stimulants? Coffee in the morning and evening. Do you use electronics in bed? TV. What is your work schedule? N/A. Hypersomnolence questionnaire: Do you have daytime tiredness or fatigue? Yes. Do you easily fall asleep when inactive? No. Have you ever had episodes of sudden weakness? No Have you ever had episodes of sudden weakness associated with strong emotions? No. PFSH Medical History Diabetes mellitus, without long-term current use of insulin Vitamin D deficiency COVID-19 vaccine series declined Colonoscopy refused Depression Obesity (BMI 30.0-34.9) Herniated intervertebral disc of lumbar spine Fatty liver History of seborrheic dermatitis Dyslipidemia Essential hypertension Surgical History History of nasal surgery Status post lumbar spinal fusion Family History (Updated 10/06/23 @ 13:16 by Rabia German CMA) Father CAD (coronary artery disease) Mother Hypertension Lupus (systemic lupus erythematosus) Cancer Sister Mental health disorder Social History Housing: Apartment Alcohol intake: never Patient Tobacco Use Status: Never used Tobacco e-Cigarette/Vaping Use: Never Used Second Hand Smoke Exposure: No service: No Current occupational status: employed Cognitive needs: No Hearing needs: No Vision needs: No Review of Systems Const All systems reviewed & are unremarkable except as noted in HPI and below Physical Exam Vital Signs: Last Vital Signs Pulse 79 10/06/23 13:16 BP 140/90 H 10/06/23 13:16 Pulse Ox 98 10/06/23 13:16 Oxygen Delivery Method Room Air 10/06/23 13:16 BMI result Body Mass Index 36.3 Const General: cooperative and tired appearing Nutritional Appearance: obese Orientation/consciousness: patient oriented x3 Neck Neck: Yes full ROM and Yes supple Resp Effort & Inspection: normal respiratory effort and able to speak in complete sentences Neuro General: patient oriented x3, gait normal and moves all extremities Cranial nerves: Yes CN's II-XII intact bilaterally Cognition (Neuro): normal cognition Gait exam (Neuro): Normal gait present Motor exam (neuro): 5/5 motor strength present throughout Psych Appearance: grossly normal Mental Status: mental status grossly normal Speech and movement: Normal speech and movement present Affect: normal affect Attitude: cooperative Assessment & Plan Assessment & Plan (1) Snoring: Code(s): R06.83 - Snoring (2) Daytime sleepiness: Code(s): R40.0 - Somnolence Plan Pt is advised to undergo home sleep study to assess for sleep apnea. Will f/u with pt after study to discuss results and appropriate treatment options. Sleep hygiene education provided. Wt reduction adivsed. Pt to call with any worsening concerns or questions. Orders: Orders RT home sleep study 10/06/23 E66.9 - Obesity, unspecified, R06.83 - Snoring, R40.0 - Somnolence Coding Level of Care Code New Pt Level 3 (32468) Diagnoses Snoring R06.83 Daytime sleepiness R40.0
[2023-10-06 13:16] VITALS: BP 140/90; PULSE 79; O2SAT 98; BMI 36.3
== END 2023-10-06 13:39 | disposition home or self-care (01) ==
PROVIDERS: PCP Internal Medicine; Visit Provider Nurse Practitioner Family
DX: R06.83 Snoring (principal); R40.0 Somnolence
CPT/HCPCS: 99203

== ENCOUNTER → 2023-10-06 13:06 | Outpatient (BNVA) | payer OTHER, SELFPAY | PROVIDERS: PCP Internal Medicine; Visit Provider Nurse Practitioner Family | DX: R40.0 Somnolence (principal); R06.83 Snoring | CPT/HCPCS: 99202 ==

== ENCOUNTER → 2023-11-23 09:47 | Outpatient (REF) | payer OTHER, SELFPAY | LOC: HO.SL 09:47 | PROVIDERS: PCP Internal Medicine; Visit Provider Nurse Practitioner Family | DX: R06.83 Snoring (principal); R40.0 Somnolence; E66.9 Obesity, unspecified; G47.33 Obstructive sleep apnea (adult) (pediatric) | CPT/HCPCS: 95806 ==

== ENCOUNTER → 2023-11-23 10:07 | Outpatient (BNV) | payer OTHER, SELFPAY | PROVIDERS: PCP Internal Medicine; Visit Provider Internal Medicine | DX: G47.33 Obstructive sleep apnea (adult) (pediatric) (principal) | CPT/HCPCS: 95806 ==

== ENCOUNTER 2024-01-26 09:31 | Outpatient (REF) | payer OTHER, SELFPAY ==
[2024-01-26 11:03] LABS: Alanine Aminotransferase 17 U/L (0-40); Anion Gap 11 (12-20); Aspartate Amino Transferase 15 U/L (5-37); Blood Urea Nitrogen 17 mg/dL (9-16); Calcium 9.5 mg/dL (8.4-10.2); Carbon Dioxide 27 mmol/L (22-29); Chloride 107 mmol/L (96-108); Cholesterol 159 mg/dL (<200); Estimated Glomerular Filt Rate > 60; Glucose Fasting 128 mg/dL (60-99); HDL Cholesterol 46 mg/dL (>40); LDL Cholesterol Calculated 93 mg/dL (<100); Potassium 4.2 mmol/L (3.3-5.1); Sodium 141 mmol/L (135-145); Triglycerides 101 mg/dL (<150)
[2024-01-26 11:10] LABS: Vitamin D 25-OH Total 28.1 ng/mL (>30)
[2024-01-26 14:36] LABS: Creatinine Urine 107.29 mg/dL; Microalbumin Urine < 5.0 mg/L
== END 2024-01-26 09:32 | disposition home or self-care (01) ==
LOC: HO.HMGCLDS 09:31
PROVIDERS: PCP Internal Medicine; Visit Provider Internal Medicine
DX: E11.9 Type 2 diabetes mellitus without complications (principal); I10 Essential (primary) hypertension; E78.5 Hyperlipidemia, unspecified; E66.9 Obesity, unspecified; E55.9 Vitamin D deficiency, unspecified
CPT/HCPCS: 36415; 80048; 80061; 82043; 82306; 82570; 84450; 84460

== ENCOUNTER 2024-02-06 10:54 | Outpatient (AMB) | payer OTHER, SELFPAY ==
--- NOTE | 2024-02-06 11:04 | MHC.OFFVIS ---
Vital Signs 02/06/24 11:13 Height 5 ft 11 in Weight 255 lb 8 oz BMI 35.6 BP 140/84 H Blood Pressure Location Lt brachial Position Sitting Pulse 83 Pulse Source Pulse Oximeter Pulse Oximetry (%) 94 Oxygen Delivery Method Room Air Intake Visit Reasons: 4m follow up Snoring/Apnea/Obesity-LVM Intake Note: Patient presents for 4 months f/u. After a couple of hours using the CPAP machine my mouth gets very dry. Allergies No Known Allergies [No Known Allergies*] Allergy (Verified 02/06/24 11:12) HPI Comments Details: 58-yr-old male presents for f/u of sleep apnea. Pt is accompanied by his . Pt denies any significant interval medical changes. Since lats visit, pt underwent HST which showed mild BETTIE w/ AHI 13.6/hr and O2 andir 84%. Since pt has started APAP, which he is overall doing well with- sleeping better, and having more daytime energy. No longer waking up yelling/talking, He notes that he is having some oral dryness. Sometimes the F 30 style mask leaks but is not bothersome. [facility] Medical History Diabetes mellitus, without long-term current use of insulin Vitamin D deficiency COVID-19 vaccine series declined Colonoscopy refused Depression Obesity (BMI 30.0-34.9) Herniated intervertebral disc of lumbar spine Fatty liver History of seborrheic dermatitis Dyslipidemia Essential hypertension Surgical History History of nasal surgery Status post lumbar spinal fusion Family History Father CAD (coronary artery disease) Mother Hypertension Lupus (systemic lupus erythematosus) Cancer Sister Mental health disorder Social History Housing: Apartment Alcohol intake: never Patient Tobacco Use Status: Never used Tobacco e-Cigarette/Vaping Use: Never Used Second Hand Smoke Exposure: No service: No Current occupational status: employed Cognitive needs: No Hearing needs: No Vision needs: No Physical Exam Vital Signs: Last Vital Signs Pulse 83 02/06/24 11:13 BP 140/84 H 06/11/24 11:13 Pulse Ox 94 02/06/24 11:13 Oxygen Delivery Method Room Air 02/06/24 11:13 BMI result Body Mass Index 35.6 Const General: cooperative and no acute distress Orientation/consciousness: patient oriented x3 Resp Effort & Inspection: normal respiratory effort and able to speak in complete sentences Neuro General: patient oriented x3 Cognition (Neuro): normal cognition Psych Appearance: grossly normal Mental Status: mental status grossly normal Speech and movement: Normal speech and movement present Affect: normal affect Attitude: cooperative Assessment & Plan Assessment & Plan (1) Mild obstructive sleep apnea: Code(s): G47.33 - Obstructive sleep apnea (adult) (pediatric) Category: Medical (2) Parasomnia: Comment: Improved once started PAP tx. Code(s): G47.50 - Parasomnia, unspecified Category: Medical Plan Continue APAP, as pt is having good clinical effect from use. Pt advised he can try adjusting hos PAP machine humidification settings. Try OTC Xylimelt 1-2 tabs applied to gum when using PAP for oral dryness. Clean and change PAP supplies routinely. Advised to let us know if parasomnias return when using PAP tx, as this may warrant further work-up. F/u in 6 months or sooner prn. Coding Level of Care Code Est Pt Level 3 (84655) Diagnoses Mild obstructive sleep apnea G47.33 Parasomnia G47.50
[2024-02-06 11:13] VITALS: BP 140/84; PULSE 83; O2SAT 94; BMI 35.6
== END 2024-02-06 11:48 | disposition home or self-care (01) ==
PROVIDERS: PCP Internal Medicine; Visit Provider Nurse Practitioner Family
DX: G47.33 Obstructive sleep apnea (adult) (pediatric) (principal); G47.50 Parasomnia, unspecified
CPT/HCPCS: 99213

== ENCOUNTER → 2024-02-06 10:54 | Outpatient (BNVA) | payer OTHER, SELFPAY | PROVIDERS: PCP Internal Medicine; Visit Provider Nurse Practitioner Family | DX: G47.33 Obstructive sleep apnea (adult) (pediatric) (principal); G47.50 Parasomnia, unspecified; R68.2 Dry mouth, unspecified; Z99.89 Dependence on other enabling machines and devices | CPT/HCPCS: 99212 ==

== ENCOUNTER 2024-03-11 09:59 | Outpatient (AMB) | payer OTHER, SELFPAY ==
[2024-03-11 10:18] VITALS: BP 136/84; PULSE 88; O2SAT 96; BMI 36.1
--- NOTE | 2024-03-11 10:18 | A.OFFPC_ITS ---
Vital Signs 03/11/24 10:18 Height 5 ft 11 in Weight 259 lb BMI 36.1 BP 136/84 Blood Pressure Location Lt brachial Position Sitting Pulse 88 Pulse Source Pulse Oximeter Pulse Oximetry (%) 96 Oxygen Delivery Method Room Air Intake Visit Reasons: f/u labs Intake Note: Pt is here today to f/u labs Allergies No Known Allergies [No Known Allergies*] Allergy (Verified 03/11/24 10:45) Medication List - Last Reconciled 03/11/24 by Amber Adam MD atorvastatin 20 mg PO DAILY blood sugar diagnostic (FreeStyle Lite Strips) test blood sugar once a day blood-glucose meter (FreeStyle Lite Meter kit) check fasting blood sugar once a day as directed diclofenac sodium 1% 2 grams topical QID PRN lancets (FreeStyle Lancets) test blood sugar once a day lisinopril 10 mg PO DAILY metformin ER 500 mg PO QAM sertraline 50 mg PO DAILY trazodone 50 mg PO BEDTIME PRN Tobacco use date assessed: 03/11/24 Dental Screening Dental Screen Date: 03/11/24 Did you have a dental visit in the last 12 months?: No Did you have a dental problem in the last 6 months where you did not have access to dental care?: No Was dental information given to patient?: Patient declined HPI f/u labs HPI Details 58-year-old male with diabetes mellitus, hypertension, depression, dyslipidemia obesity, here today for follow-up. Has been compliant with his medications and tries to follow recommended diet. Stays active, does a lot of gardening and yd work. [facility] Medical History Diabetes mellitus, without long-term current use of insulin Vitamin D deficiency COVID-19 vaccine series declined Colonoscopy refused Depression Obesity (BMI 30.0-34.9) Herniated intervertebral disc of lumbar spine Fatty liver History of seborrheic dermatitis Dyslipidemia Essential hypertension Surgical History History of nasal surgery Status post lumbar spinal fusion Family History Father CAD (coronary artery disease) Mother Hypertension Lupus (systemic lupus erythematosus) Cancer Sister Mental health disorder Social History Housing: Apartment Alcohol intake: never Patient Tobacco Use Status: Never used Tobacco e-Cigarette/Vaping Use: Never Used Second Hand Smoke Exposure: No service: No Current occupational status: employed Cognitive needs: No Hearing needs: No Vision needs: No Questionnaire Thrive Questionnaire Date Thrive assessed: 08/01/23 DAYANNA-7 AMB Questionnaire DAYANNA-7 Date DAYANNA - 7 assessed: 08/01/23 Source: Developed by Drs. Soham Ochoa, Jeaneth Maurice, Moises Larios and colleagues, with an educational gigi from [employer]. Review of Systems Const Denies fever(s), Denies headache(s), Denies malaise and Denies poor appetite Eyes Details: Will be scheduling appointment with Dr. Marie for his diabetic retinopathy exam ENT Denies dizziness, Denies headache(s) and Denies nasal congestion Card Denies chest pain, Denies lightheadedness and Denies dyspnea Resp Denies cough and Denies dyspnea GI Denies abdominal pain, Denies change in bowel habits, Denies heartburn and Denies nausea Reports no additional complaints Musc Reports no additional complaints Skin/Breast Denies rash Neuro Denies dizziness and Denies headache(s) Psych Reports as per HPI Endo Details: Sees Ro Sunawilda in [place] podiatry, has diabetic shoes, occasional numbness in toes Reports no additional complaints Robles/Lymph Reports no additional complaints Aller/Immun Reports no additional complaints Physical exam (Primary Care) Vital Signs: Last Vital Signs Pulse 88 03/11/24 10:18 BP 136/84 03/11/24 10:18 Pulse Ox 96 03/11/24 10:18 Oxygen Delivery Method Room Air 03/11/24 10:18 BMI result Body Mass Index 36.1 Tobacco/Smoking Status: Tobacco use Status Tobacco use date assessed 03/11/24 03/11/24 10:22 Patient Tobacco Use Status Never used Tobacco 03/11/24 10:22 e-Cigarette/Vaping Use Never Used 03/11/24 10:22 Thrive Assessment: Date of Thrive Assessment Date Thrive assessed 08/01/23 03/11/24 10:22 Const General: comfortable, no acute distress and alert Nutritional Appearance: obese Orientation/consciousness: patient oriented x3 HENMT Mouth: Normal oral and palatal mucosa present, oropharynx normal and moist mucous membranes Eyes General: appearance normal, both eyes and all related structures Neck Neck: Yes full ROM, Yes no lymphadenopathy and Yes supple Resp Auscultation: clear to auscultation bilaterally Cardio Palpation: normal PMI Rhythm: regular rhythm Heart sounds: S1 normal heart sound present and S2 normal heart sound present GI Palpation (GI): Soft to palpation, nontender and no guarding General: Yes no CVA tenderness Male General Exam: Yes normal external exam Back/Spine/Pelvis Back: no CVA tenderness Skin General skin exam: no rashes or lesions noted Neuro General: patient oriented x3, gait normal, tone normal, moves all extremities, Normal light touch and pain sensation, no focal motor deficits and CN's II-XI intact bilaterally Extrem Other: No swelling in toes of both feet, intact sensation, normal range of motion General: Yes full ROM, Yes no joint enlargement, Yes no pedal edema, Yes no calf tenderness and Yes normal gait Psych Appearance: grossly normal Mental Status: mental status grossly normal Attitude: cooperative Results AMB Hemoglobin A1c AMB Hemoglobin A1c 6.8 % Last Edit by Patricia Payne CMA on 03/11/24 10:35 Results Reviewed Results Reviewed: Laboratory Last Values Hgb A1c (Clinic) 6.8 % (4.0-6.0) H 03/11/24 10:30 zen: Winston Be Age/Sex: 58/M : 1965 Unit#: [id number] Attend Dr: Amber Adam MD Re01/26/24 Status: DEP REF Location: [facility] Disch: SPEC : [id number] NENA: 01/26/24 STATUS: COMP REQ : [id number] RECD: 01/26/24-[address]: Amber Adam MD COMP: 01/26/24-1109 ENTERED: 01/26/24-933 [facility] DR: ORDERED: Met Prof Fast, AST, ALT, Lipid Panel, Vitamin D 25-OH Test Result Flag Reference Sodium 141 135-145 mmol/L Potassium 4.2 3.3-5.1 mmol/L CL 107 96-108 mmol/L CO2 27 22-29 mmol/L Gap 11 L 12-20 BUN 17 H 9-16 mg/dL Creat 0.87 0.5-1.4 mg/dL EGFR > 60 NOTE: For -[place] individuals, multiply the result by 1.210. Chronic Kidney Disease: Estimated GFR < 60 mL/min/1.73m2 Severe Kidney Disease: Estimated GFR < 15 mL/min/1.73m2 FBS 128 H 60-99 mg/dL A fasting glucose of 126 mg/dl or greater on more than one occasion is considered diagnostic of diabetes. CA 9.5 8.4-10.2 mg/dL AST (GOT) 15 5-37 U/L ALT (GPT) 17 0-40 U/L Triglyceride 101 <150 mg/dL Desirable Triglyceride: less than 150 mg/dL Borderline High Triglyceride 150-199 mg/dL High Triglyceride: 200-499 mg/dL Very High Triglyceride: greater than or equal to 5OO mg/dL Cholesterol 159 <200 mg/dL Desirable Cholesterol: less than 200 mg/dL Borderline High Cholesterol: 200-239 mg/dL High Cholesterol: greater than 239 mg/dL LDL Calculated 93 <100 mg/dL Desirable LDL: less than 100 mg/dL Near Optimal/Above Optimal LDL: 110-129 mg/dL Borderline High LDL: 130-159 mg/dL High LDL: 160-189 mg/dL Very High LDL: greater than or equal to 190 mg/dL HDL 46 >40 mg/dL Desirable HDL: greater than 40 mg/dL Note: This HDL assay may give artificially low results in patients with liver disease. Vit D 25-OH Tot 28.1 L >30 ng/mL Health Based Reference Values* < 20 ng/mL Deficient 20-30 ng/mL Insufficient > 30 ng/mL Sufficient Assessment and Plan Assessment & Plan (1) Diabetes mellitus, without long-term current use of insulin: Code(s): E11.9 - Type 2 diabetes mellitus without complications Plan: Recent lab results reviewed with patient, with sugar and hemoglobin A1c higher than last check at 6.8%. Increase metformin ER to 500 mg tablet taken 1 tablet twice a day with meals. Reinforced diabetic diet and regular exercise with patient. Counseled regarding importance of yearly diabetes retinopathy screening, he sees Dr. Marie. 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 Compliance with diet and regular exercise again stressed. Blood pressure goal is less than 130/80, goal LDL is less than 100 and goal hemoglobin A1c is less than 7% follow-up appointment made in-3--months, after fasting labs done. (2) Essential hypertension: Code(s): I10 - Essential (primary) hypertension Plan: Continue lisinopril 10 mg daily (3) Dyslipidemia: Code(s): E78.5 - Hyperlipidemia, unspecified Plan: Lipids are within normal limits, continued on atorvastatin 20 mg daily (4) Vitamin D deficiency: Code(s): E55.9 - Vitamin D deficiency, unspecified Plan: Had deficient vitamin-D level on recent labs done. Started on cholecalciferol 08457 units per capsule to take once a week for the next 3 months. Prescription sent to pharmacy. Orders: Orders Hemoglobin A1c 06/09/24 E11.9 - Type 2 diabetes mellitus without complications, E55.9 - Vitamin D deficiency, unspecified, E78.5 - Hyperlipidemia, unspecified, I10 - Essential (primary) hypertension Alanine Aminotransferase 06/09/24 E11.9 - Type 2 diabetes mellitus without complications, E55.9 - Vitamin D deficiency, unspecified, E78.5 - Hyperlipidemia, unspecified, I10 - Essential (primary) hypertension AMB Hemoglobin A1c 03/11/24 E11.9 - Type 2 diabetes mellitus without complications Aspartate Amino Transferase 06/09/24 E11.9 - Type 2 diabetes mellitus without complications, E55.9 - Vitamin D deficiency, unspecified, E78.5 - Hyperlipidemia, unspecified, I10 - Essential (primary) hypertension Basic Metabolic Panel Fasting 06/09/24 E11.9 - Type 2 diabetes mellitus without complications, E55.9 - Vitamin D deficiency, unspecified, E78.5 - Hyperlipidemia, unspecified, I10 - Essential (primary) hypertension Lipid Panel 06/09/24 E11.9 - Type 2 diabetes mellitus without complications, E55.9 - Vitamin D deficiency, unspecified, E78.5 - Hyperlipidemia, unspecified, I10 - Essential (primary) hypertension Vitamin D 25-OH Total 06/09/24 E11.9 - Type 2 diabetes mellitus without complications, E55.9 - Vitamin D deficiency, unspecified, E78.5 - Hyperlipidemia, unspecified, I10 - Essential (primary) hypertension Medications: New cholecalciferol (vitamin D3) 1,250 mcg PO QWEEK 3 months 13 caps 0RF Changed From metformin ER 500 mg PO QAM 90 tabs 1RF E11.65 - Type 2 diabetes mellitus with hyperglycemia To metformin ER 500 mg PO BID 3 months 180 tabs 3RF E11.65 - Type 2 diabetes mellitus with hyperglycemia Refilled lisinopril 10 mg PO DAILY 90 tabs 3RF atorvastatin 20 mg PO DAILY 90 tabs 3RF Coding Level of Care Code Est Pt Level 4 (41816) Complex EM visit Add On G2211 Diagnoses Diabetes mellitus, without long-term current use of insulin E11.9 Essential hypertension I10 Dyslipidemia E78.5 Vitamin D deficiency E55.9
== END 2024-03-11 10:55 | disposition home or self-care (01) ==
LOC: HO.HMGC 09:59
PROVIDERS: PCP Internal Medicine; Visit Provider Internal Medicine
DX: E11.9 Type 2 diabetes mellitus without complications (principal)
CPT/HCPCS: 83036; 99214; G2211

== ENCOUNTER 2025-05-10 10:30 | Outpatient (REF) | payer MEDICARE, OTHER, SELFPAY ==
--- OUTSIDE RECORDS SUMMARY | 2024-02-06 06:00 | XMS_ITS ---
Author Organization [facility] Address [address] [place] [address] Care Team Providers Care Ammunition Officer Name Role Phone Jair CORTES, Amber Moncada Primary Care Provider Un available Ro Park Unavailable [phone] Medications Medication SIG (Take, Route, Frequency, Duration) Notes Start Date End Date Status Lisinopril 10 MG 1 tablet Orally Once a day; Duration: 30 day(s) Active Extra Depth Orthopedic Shoes (1 Pair) with Customized Heat Molded Multidensity Innersoles (3 Pair) as directed Dx: NIDDM/Polyneuropathy (E11.42), Hammertoe Foot Deformity (M20.41,M20.42), Preulcerative Skin Lesion(s) (L85.1 Active Tylenol Active traZODone HCl 50 MG 1 tablet at bedtime as needed Orally Once a day; Duration: 30 day(s) Active Sertraline HCl 50 MG 1 tablet Orally Onc e a day; Duration: 30 day(s) Active metFORMIN HCl 500 MG 1 tablet with a isaiah l Orally Once a day; Duration: 30 day(s) Active Atorvastatin Calcium 20 MG 1 tablet Oral ly Once a day; Duration: 30 day(s) Active Encounters Encounter Location Date Provider Diagnosis [facility] [address] [place] [address] 02/06/2024 Ro Park Plan Of Treatment Next Appt Details Provider Name:Ro kaiser, 05/28/2025 09:15:00 AM, [address] [place], [address], Progress Notes * Pavel GRANDEoDOB: 6 (59 yo M)Acc No.[id number]:02/06/2024 Progress Note Patient: Winston PEARSON Provider: Myrna Park DPM :1965 A ge:58 Y S ex:Male Date:02/06/2024 Address:[address] [place] [address] [facility] Pcp:Luda Stone Subjective: * Chief Complaints: * * Medical History: * Medications: T aking Atorvastatin Calcium 20 MG Tablet 1 tablet Orally Once a day , Taking metFORMIN HCl 500 MG Tablet 1 tablet with a meal Orally Once a day , Taking Lisinopril 10 MG Tablet 1 tablet Orally Once a day , Taking Sertraline HCl 50 MG Tablet 1 tablet Orally Once a day , Taking traZODone HCl 50 MG Tablet 1 tablet at bedtime as needed Orally Once a day , Taking Tylenol , Taking Extra Depth Orthopedic Shoes (1 Pair) with Customized Heat Molded Multidensity Innersoles (3 Pair) as directed Dx: NIDDM/Polyneuropathy (E11.42), Hammertoe Foot Deformity (M20.41,M20.42), Preulcerative Skin Lesion(s) (L85.1 Objective: * Vitals: Assessment: Plan: * Treatment: * Images: * The named appointment provid er may or may not be the originator of this progress note, and it is not deemed complete until electronically signed by the appointment provider. Sign off status: Pending * Provider: Myrna Park DPM Date: 02/06/2024 Generated for James mccullough/Cristiane/Danny on: 0 05/10/2025 10:14 AM EDT
--- OUTSIDE RECORDS SUMMARY | 2024-03-27 07:15 | XMS_ITS ---
Author Organization [facility] Address [address] [place] [address] Care Team Providers Care Company Manager Name Role Phone Jair CORTES, Amber Moncada Primary Care Provider Un available Ro Park Unavailable [phone] Medications Medication SIG (Take, Route, Frequency, Duration) [...] Active Encounters Encounter Location Date Provider Diagnosis [facility] [address] [place] [address] 03/27/2024 Ro Park Plan Of Treatment Next Appt Details Provider Name:Ro kaiser, 05/28/2025 09:15:00 AM, [address] [place], [address], Progress Notes * Pavel GRANDEoDOB: 6 (59 yo M)Acc No.[id number]:03/27/2024 Progress Note Patient: Winston PEARSON Provider: Myrna Park DPM :1965 A ge:58 Y S ex:Male Date:03/27/2024 Address:[address] [place] [address] [facility] Pcp:Luda Stone Subjective: * Chief Complaints: * [...] Pending * Provider: Myrna Park DPM Date: 03/27/2024 Generated for James mccullough/Cristiane/Moreitting on: 0 05/10/2025 10:14 AM EDT
--- OUTSIDE RECORDS SUMMARY | 2025-01-03 06:00 | XMS_ITS ---
Author Organization [facility] Address [address] [place] [address] Care Team Providers Care Production Broacher Name Role Phone Jair CORTES, Amber Moncada Primary Care Provider Un available Ro Park Unavailable [phone] Ayers Medications Medication [...] Active Encounters Encounter Location Date Provider Diagnosis [facility] [address] [place] [address] 01/03/2025 Ro Park Plan Of Treatment Next Appt Details Provider Name:Ro kaiser, 05/28/2025 09:15:00 AM, [address] [place], [address], Progress Notes * Pavel GRANDEoDOB: 6 (59 yo M)Acc No.[id number]:01/03/2025 Progress Note Patient: Winston PEARSON Provider: Myrna Park DPM :1965 A ge:59 Y S ex:Male Date:01/03/2025 [facility] Pcp:Luda Stone Subjective: * Chief Complaints: * [...] DPM Date: 0 01/03/2025 Generated for James mccullough/Cristiane/Danny on: 0 05/10/2025 10:14 AM EDT
--- OUTSIDE RECORDS SUMMARY | 2025-03-07 09:45 | XMS_ITS ---
Author Organization [facility] Address [address] [place] [address] Care Team Providers Care Pershing Missile Crewmember Name Role Phone Jair CORTES, Amber Moncada Primary Care Provider Un available Ro Park Unavailable [phone] Medications Medication SIG (Take, Route, Frequency, Duration) [...] Active Encounters Encounter Location Date Provider Diagnosis [facility] [address] [place] [address] 03/07/2025 Ro Park Plan Of Treatment Next Appt Details Provider Name:Ro kaiser, 05/28/2025 09:15:00 AM, [address] [place], [address], Progress Notes * Pavel GRANDEoDOB: 6 (59 yo M)Acc No.[id number]:03/07/2025 Progress Note Patient: Winston PEARSON Provider: Myrna Park DPM :1965 A ge:59 Y S ex:Male Date:03/07/2025 Address:[address] [place], [place] [address], [facility] Pcp:Luda Stone Subjective: * Chief Complaints: * [...] Pending * Provider: Myrna Park DPM Date: 03/07/2025 Generated for James mccullough/Cristiane/Moreitting on: 0 05/10/2025 10:13 AM EDT
--- OUTSIDE RECORDS SUMMARY | 2025-05-10 10:14 | XMS_ITS | Patient Health Record ---
Author Organization [facility] Address [address] [facility] [place] [address] Care Team Providers Care Inspector Elevators Name Role Phone Jair CORTES, Amber Moncada Primary Care Provider Un available SunRuddy kaiseren Unavailable [phone] Allergies No Known Allergies Reason For Referral No Information Medications Medication SIG (Take, Route, Frequency, Duration) Notes Start Date End Date Status metFORMIN HCl 500 MG 1 tablet with [...] Duration: 30 day(s) Active Vitamin D3 Active Tylenol Active traZODone HCl 50 MG 1 tablet at bedtime as needed Orally Once a day; Duration: 30 day(s) Active Extra Depth Orthopedic Shoes (1 Pair) with Customized Heat Molded Multidensity Innersoles (3 Pair) as directed Dx: NIDDM/Polyneuropathy (E11.42), Hammertoe Foot Deformity (M20.41,M20.42), Preulcerative Skin Lesion(s) (L85.1 Active Immunizations Vaccine Route Administration Date Status Comme nts Influenza Unknown 07/28/2023 Administered Social History Tobacco Use: Social History Observation Description Date Details (start date - stop date) Never Smoker NA - NA Tobacco Use/Smoking Question Answer Notes Are you a: nonsmoker Additional Findings: Tobacco Non-User Current no n-smoker Alcohol Screen Question Answer Notes Did you have a drink containing alcohol in the p ast year? No Points 0 Interpretation Negative Tobacco use other than smoking: Question Answer Notes Are you an other tobacco user? No Problems Problem Type SNOMED Code ICD Code Onset Dates Problem Status W/U Status Risk Notes Problem Acquired hammer toe of right foot (7056669178423638 ) Other hammer toe(s) (acquired), right foot (M20.41) Active confirmed Problem Acquired hammer toe of left foot (3497130018005718 ) Other hammer toe(s) (acquired), left foot (M20.42) Active confirmed Problem Polyneuropathy due to type 2 diabetes mellitus (185901849) Type 2 diabetes mellitus with polyneuropathy (E11.42) Active confirmed Encounters Encounter Location Date Provider Diagnosis [facility] [address] [address] 01/03/2025 Ro Park [facility] [address] [address] 03/07/2025 Ro Park Plan Of Treatment Next Appt Details Provider Name:Ro kaiser, 05/28/2025 09:15:00 AM, [address] [place] [address], [address], Insurance Providers Payer Name Payer Address Payer Phone Subscriber Number Group Number Insured Name Patient Relationship to Insured Coverage Start Date Coverage End Date [facility] [employer] Claims [address] [place] [id number] [phone] [id number] Winston Be Self - patient is the insured Medical (General) History Medical History History ICD Code Anxiety Arthritis Back,Hip,and Knee pain Depression type II diabetes Headaches/Migraines High blood pressure Chicken pox CPap Surgical History Surgery Date(Month/Year) herniated disk repair L5 S1 head mass
[2025-05-10 13:57] LABS: Hemoglobin A1C 378.9094 umol/L; Total Hemoglobin (HGBA1C) 3898.5254 umol/L
[2025-05-10 14:06] LABS: Alanine Aminotransferase 30 U/L (0-40); Anion Gap 14 (12-20); Aspartate Amino Transferase 27 U/L (5-37); Blood Urea Nitrogen 15 mg/dL (9-16); Calcium 8.8 mg/dL (8.4-10.2); Carbon Dioxide 26 mmol/L (22-29); Chloride 102 mmol/L (96-108); Cholesterol 164 mg/dL (<200); Estimated Glomerular Filt Rate > 60; HDL Cholesterol 44 mg/dL (>40); Potassium 3.9 mmol/L (3.3-5.1); Sodium 138 mmol/L (135-145); Triglycerides 119 mg/dL (<150)
== END 2025-05-10 10:31 | disposition home or self-care (01) ==
LOC: HO.HMGCLDS 10:30
PROVIDERS: PCP Internal Medicine; Visit Provider Internal Medicine
DX: I10 Essential (primary) hypertension (principal); E11.9 Type 2 diabetes mellitus without complications; E78.5 Hyperlipidemia, unspecified; E55.9 Vitamin D deficiency, unspecified
CPT/HCPCS: 36415; 80048; 80061; 82306; 83036; 84450; 84460

== ENCOUNTER 2025-06-11 12:36 | Outpatient (AMB) | payer MEDICARE, SELFPAY ==
--- OUTSIDE RECORDS SUMMARY | 2024-03-27 07:15 | XMS_ITS ---
Author Organization [facility] Address [address] [place] [address] Care Team Providers Care Communications Marketing Intern Name Role Phone Jiar CORTES, Amber Moncada Primary Care Provider Un available Ro Park Unavailable [phone] Medications Medication SIG (Take, Route, Frequency, Duration) [...] Active Encounters Encounter Location Date Provider Diagnosis [facility] [address] [place] [address] 03/27/2024 Ro Park Plan Of Treatment No Information Progress Notes * Shelli GRANDEOB: 6 (59 yo M)Acc No.[id number]:03/27/2024 Progress Note Patient: Winston PEARSON Provider: Myrna Park DPM :1965 A ge:58 Y S ex:Male Date:03/27/2024 Address:[place] Pcp:Luda Stone Subjective: * Chief Complaints: * [...] 0 03/27/2024 Generated for James mccullough/Cristiane/Danny on: 03:52 PM EDT
--- OUTSIDE RECORDS SUMMARY | 2025-01-03 06:00 | XMS_ITS ---
Author Organization [facility] Address [address] [place] [address] Care Team Providers Care Team Psychologist Name Role Phone Jair CORTES, Amber Moncada Primary Care Provider Un available Ro Park Unavailable [phone] Ayers Medications Medication [...] Active Encounters Encounter Location Date Provider Diagnosis [facility] [address] [place] [address] 01/03/2025 Ro Park Plan Of Treatment No Information Progress Notes * Shelli GRANDEOB: 6 (59 yo M)Acc No.[id number]:01/03/2025 Progress Note Patient: O LIVO, Winston Provider: Myrna Park DPM :1965 A ge:59 Y S ex:Male Date:01/03/2025 Address:[place] Pcp:Luda Stone Subjective: * Chief Complaints: * [...] 01/03/2025 Generated for James mccullough/Cristiane/Moreitting on: 1 03:53 PM EDT
--- OUTSIDE RECORDS SUMMARY | 2025-03-07 09:45 | XMS_ITS ---
Author Organization [facility] Address [address] [place] [address] Care Team Providers Care Carbon Brushes Assembler Name Role Phone Jair CORTES, Amber Moncada Primary Care Provider Un available Ro Park Unavailable [phone] Medications Medication SIG (Take, Route, Frequency, Duration) [...] Encounters Encounter Location Date Provider Diagnosis [facility] [address] [place] [address] 03/07/2025 Ro Park Plan Of Treatment No Information Progress Notes * Shelli GRANDEOB: 6 (59 yo M)Acc No.[id number]:03/07/2025 Progress Note Patient: O Winston PAZ Provider: Myrna Park DPM :1965 A ge:59 Y S ex:Male Date:03/07/2025 Address:[place], [place] Pcp:Luda Stone Subjective: * Chief Complaints: * [...] 03/07/2025 Generated for James mccullough/Cristiane/Danny on: 1 03:52 PM EDT
--- OUTSIDE RECORDS SUMMARY | 2025-05-28 05:15 | XMS_ITS ---
Author Organization [facility] Address [address] [place] [address] Care Team Providers Care Developer Relations Manager Name Role Phone Jair CORTES, Amber Moncada Primary Care Provider Un available Ro Park Unavailable [phone] Medications Medication SIG (Take, Route, Frequency, Duration) [...] Active Encounters Encounter Location Date Provider Diagnosis [facility] [address] [place] [address] 05/28/2025 Ro Park Plan Of Treatment No Information Progress Notes * Shelli GRANDEOB: 6 (59 yo M)Acc No.[id number]:05/28/2025 Progress Note Patient: O Winston PAZ Provider: Myrna Park DPM :1965 A ge:59 Y S ex:Male Date:05/28/2025 Address:[place], [place] Pcp:Luda Stone Subjective: * Chief Complaints: * [...] Pending * Provider: Myrna Park DPM Date: Generated for James mccullough/Cristiane/Danny on: 03:51 PM EDT
--- NOTE | 2025-06-11 12:59 | AM.OFFVISMDC ---
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 59-year-old male with history of dyslipidemia, diabetes mellitus, mild obstructive sleep apnea, polyarthralgia, hypertension, depression, presenting today for his initial annual wellness visit He has never had colon cancer screening has declined repeatedly getting colonoscopy procedure , willing to do Cologuard, ordered today. He is up-to-date with his lipid screening done 05/10/2025, he has diabetes mellitus however is poorly controlled with his last hemoglobin A1c done at the same time at 11% with a fasting glucose of 271 mg/dL. He is up-to-date with her pneumonia vaccine, received 1 dose of Shingrix vaccine, reminded to get the 2nd dose, and flu vaccine was given today. Declined getting the COVID booster .? Medical / Social History Reviewed? Past Medical History ?Yes . ? [place] of Care / Care Team list updated ?Yes . ? Surgical/Hospitalization History ?Yes . ? Current Medications (including OTC and supplements) ?Yes . ? Family History ?Yes . ? Tobacco Control form ?Yes . ? AUDIT-C (Alcohol use) form ?Yes . ? Illicit drug use in Social History ?Yes . ? Current diagnosis of depression? ?Yes, followed by?WANDY MARTINEZ ? Appropriate PHQ2/PHQ9 completed ?Yes . ? Data entered by ?Metal Hanging Supervisor and reviewed by provider ? Fall Risk ? Fall History? Have you had any falls with injury in the past year? ?No . ? Have you had two or more falls in the past year? ?No . ? Fall Risk Assessment: ?No falls in the past year . ? HRA filled out by the patient, reviewed by Provider and scanned. ? AWV ? Balance? Romberg ?negative ? Tandem walk ?Yes . ? Walk and Turn ?Yes . ? Rise from sit to stand ?Yes . ?Vision? Corrective lens ?none, overdue with his diabetes retinopathy screening and routine eye exam ? Vision screen -overdue?. ?Hearing? Whisper test ?pass . ?Written Plan?Completed. See Patient Documents.? HPI Comments History of Present Illness Details Patient is also here follow-up on his diabetes. He is accompanied by his , who states that patient has not been taking his medicines as directed, , has been sedentary and has been compliant with recommended diet. Latest hemoglobin A1c is at 11%. Fasting lipids however are within normal limits. It is also noted that his vitamin-D is low at 27 ng/mL. Blood pressure also noted to be elevated on this visit. Patient however denies any pain, no headache or lightheadedness, no shortness of breath. [facility] Medical History (Updated 06/11/25 @ 13:37 by Amber Adam MD) Diabetes mellitus with hyperglycemia Diabetes mellitus, without long-term current use of insulin Vitamin D deficiency COVID-19 vaccine series declined Colonoscopy refused Depression Obesity (BMI 30.0-34.9) Herniated intervertebral disc of lumbar spine Fatty liver History of seborrheic dermatitis Dyslipidemia Essential hypertension Surgical History History of nasal surgery Status post lumbar spinal fusion Family History Father CAD (coronary artery disease) Mother Hypertension Lupus (systemic lupus erythematosus) Cancer Sister Mental health disorder Social History Housing: Apartment Alcohol intake: never Patient Tobacco Use Status: Never used Tobacco e-Cigarette/Vaping Use: Never Used Second Hand Smoke Exposure: No service: No Current occupational status: employed Cognitive needs: No Hearing needs: No Vision needs: No Questionnaire Medicare Wellness Checkup What gender do you identify with?: male During the past 4 weeks, how much have you been bothered by emotional problems such as feeling anxious, depressed, irritable, sad or downhearted, and blue?: moderately During the past 4 weeks, has your physical & emotional health limited your social activities with family, friends, neighbors, or groups?: slightly During the past 4 weeks, how much bodily pain have you generally had?: moderate pain During the past 4 weeks, was someone available to help you if you needed & wanted help?: yes, quite a bit During the past 4 weeks, what was the hardest physical activity you could do for at least 2 minutes?: light Can you get to places out of walking distance without help? (For eg., can you travel alone on buses, taxis or drive your car?): Yes Can you go shopping for groceries or clothes without someone's help?: No Can you prepare your own meals?: Yes Can you do your housework without help?: No Because of any health problems, do you need the help of another person with your personal care needs such as eating, bathing, dressing or getting around the house?: No Can you handle your own money without help?: Yes During the past 4 weeks, how would you rate your health in general?: fair During the past 4 weeks how have things been going for you?: good & bad parts about equal Are you having difficulties driving your car?: no Do you always fasten your seat belt when you are in a car?: yes, usually During past 4 weeks, have you been bothered by the following: never: Sexual problems?, Trouble eating well?, Teeth or denture problems? and Problems using the telephone?, seldom: Falling or dizzy when standing up and sometimes: Tiredness or fatigue? Have you fallen 2 or more times in the past year?: No Are you afraid of falling?: No Are you a smoker?: no During the past 4 weeks, how many drinks of wine, beer, or other alcoholic beverages did you have?: no alcohol at all Do you exercise for about 20 minutes 3 or more times a week?: no, I usually do not exercise this much Have you been given information to help with the following?: yes: Hazards in your house that might hurt you? and no: Keeping track of your medications? How often do you have trouble taking medicines the way you have been told to take them?: I always take medicine as prescribed How confident are you that you can control & manage most of your health problems?: not very confident What is your race?: or origin or descent Mini Mental State Exam (MMSE) Orientation What is the (year) (season) (date) (day) (month)?: year (2024), season (fall), date (06/11/25), day (monday) and month (May) Where are we (state) (county) (town or city) (hospital) (floor)?: state ([place] county ([place]), town or city ([place]) and hospital/clinic ([facility]) Score Score: 9 Activity of Daily Living Bathing - sponge bath, tub bath or shower: receives no assistance (gets in/out by self, if usual bathing means Dressing - getting clothes from closets & drawers, including inner/outer garments & fasteners.: gets clothes & gets completely dressed without help Toileting - going to the 'toilet room' for urine/bowel elimination & cleaning self/arranging clothes: goes to toilet room, cleans self, arranges clothes without help Transfer: moves in & out of bed and chair without help (may use support object) Continence: controls urination/bowel movements completely by self Feeding: feeds self without help Total Score: 0 Information obtained from: patient Using telephone: independent Traveling: needs assistance Shopping: needs assistance Preparing meals: independent Housework: independent Taking medicine: needs assistance Managing money: independent PHQ-9 Over the last 2 weeks, how often have you been bothered by any of the following problems? 1. Little interest or pleasure in doing things: several days 2. Feeling down, depressed, or hopeless: several days 3. Trouble falling or staying asleep, or sleeping too much: several days 4. Feeling tired or having little energy: several days 5. Poor appetite or overeating: several days 6. Feeling bad about yourself - or that you are a failure or have let yourself or your family down: not at all 7. Trouble concentrating on things, such as reading the newspaper or watching television: nearly every day 8. Moving or speaking so slowly that other people could have noticed. Or the opposite - being so fidgety or restless that you have been moving around a lot more than usual: several days 9. Thoughts that you would be better off or of hurting yourself in some way: not at all Total score: 9 Depression Screening Interpretation: Positive (Currently on sertraline and trazodone, followed by psychiatry, Wandy Martinez) Depression Screening Follow-up: Existing condition, In treatment and Community Mental Health Worker F/U Depression Screening Done: Yes Source: Developed by Drs. Soham Ochoa, Jeaneth Maurice, Moises Larios and colleagues, with an educational gigi from [employer]. Review of Systems Const Denies headache(s), Denies malaise and Denies poor appetite Eyes Details: Will be scheduling appointment with Dr. Marie for his diabetic retinopathy exam ENT Denies dizziness, Denies headache(s) and Denies nasal congestion Card Denies chest pain, Denies lightheadedness and Denies dyspnea Resp Denies cough and Denies dyspnea GI Denies abdominal pain, Denies change in bowel habits, Denies heartburn and Denies nausea Reports no additional complaints Musc Reports no additional complaints Skin/Breast Denies rash Neuro Denies dizziness and Denies headache(s) Endo Details: Sees [facility] [place] [facility], has diabetic shoes, occasional numbness in toes Reports no additional complaints Robles/Lymph Reports no additional complaints Aller/Immun Reports no additional complaints Physical Exam Vital Signs: Last Vital Signs Temp 97.9 F 06/11/25 13:04 Pulse 86 06/11/25 13:04 Resp 16 06/11/25 13:04 BP 140/100 H 06/11/25 13:04 Pulse Ox 97 06/11/25 13:04 Oxygen Delivery Method Room Air 06/11/25 13:04 BMI result Body Mass Index 34.9 Const Other: accompanying patient General: no acute distress Nutritional Appearance: obese Orientation/consciousness: patient oriented x3 HEENT Mouth: Normal oral and palatal mucosa present, oropharynx normal and moist mucous membranes Neck Neck: Yes full ROM, Yes no lymphadenopathy and Yes supple Resp Effort & Inspection: normal respiratory effort and able to speak in complete sentences Auscultation: clear to auscultation bilaterally Cardio Other: S1-S2 present regular rate and rhythm GI Inspection: Yes obesity Palpation (GI): Soft to palpation, nontender and no guarding Auscultation: normal bowel sounds Neuro General: patient oriented x3, gait normal, tone normal, moves all extremities and no focal motor deficits Cognition (Neuro): normal cognition Extrem General: Yes normal to inspection, Yes full ROM, Yes no joint enlargement and Yes no clubbing, cyanosis or edema Psych Appearance: grossly normal Mental Status: mental status grossly normal Speech and movement: Normal speech and movement present Affect: normal affect Attitude: cooperative Office Procedures Flu Questionnaire Does the patient have a severe egg allergy?: No Does the patient have severe life threatening allergies?: No Does the patient have a fever or illness today?: No Has the patient ever had Guillain-[place] Syndrome?: No Has the patient ever had any past reaction to a flu shot?: No Immunizations Fluarix [id number] (PF) 45 mcg (15 mcg x 3)/0.5 mL IM syringe Performing Provider: Amber Adam MD Performing Location: [facility] Administered by: Patricia Payne CMA on 06/11/25 14:11 Dose Route Admin Location Dispensed Lot Number Expiration Date [facility] Rn Provider Relations 0.5 mL IM Left Deltoid 0.5 mL [id number] 02/24/26 [id number] [employer] VIS Given Date VIS Provided VIS Publication Date 06/11/25 Single Vaccine 24 Eligibility Eligibility Date Funding Source Not [facility] Eligible 06/11/25 Private Results Reviewed Results Reviewed: Name: Winston Be Age/Sex: 59/M : 1965 Unit#: [id number] Attend Dr: Amber Adam MD Re05/10/25 Status: DEP [facility] Dis[facility]: SPEC : [id number] NENA: 05/10/25-1055 STATUS: COMP REQ : [id number] RECD: 05/10/25-[address]: Amber Adam MD COMP: 05/10/25-1422 ENTERED: 05/10/25-[address]: ORDERED: Met Prof Fast, AST, ALT, Lipid Panel, Vitamin D 25-OH Test Result Flag Reference Sodium 138 135-145 mmol/L Potassium 3.9 3.3-5.1 mmol/L CL 102 96-108 mmol/L CO2 26 22-29 mmol/L Gap 14 12-20 BUN 15 9-16 mg/dL Creat 0.85 0.5-1.4 mg/dL eGFR > 60 Chronic Kidney Disease: Estimated GFR < 60 mL/min/1.73m2 Severe Kidney Disease: Estimated GFR < 15 mL/min/1.73m2 FBS 271 H 60-99 mg/dL A fasting glucose of 126 mg/dl or greater on more than one occasion is considered diagnostic of diabetes. CA 8.8 # 8.4-10.2 mg/dL AST (GOT) 27 5-37 U/L ALT (GPT) 30 0-40 U/L Triglyceride 119 <150 mg/dL Desirable Triglyceride: less than 150 mg/dL Borderline High Triglyceride 150-199 mg/dL High Triglyceride: 200-499 mg/dL Very High Triglyceride: greater than or equal to 5OO mg/dL Cholesterol 164 <200 mg/dL Desirable Cholesterol: less than 200 mg/dL Borderline High Cholesterol: 200-239 mg/dL High Cholesterol: greater than 239 mg/dL LDL Calculated 97 <100 mg/dL Desirable LDL: less than 100 mg/dL Near Optimal/Above Optimal LDL: 110-129 mg/dL Borderline High LDL: 130-159 mg/dL High LDL: 160-189 mg/dL Very High LDL: greater than or equal to 190 mg/dL HDL 44 >40 mg/dL Desirable HDL: greater than 40 mg/dL Note: This HDL assay may give artificially low results in patients with liver disease. Vitamin D 25-OH 27.0 L >30 ng/mL Health Based Reference Values* < 20 ng/mL Deficient 20-30 ng/mL Insufficient > 30 ng/mL Sufficient Laboratory Tests 05/10/25 10:55 Estimat Average Glucose 269 Hemoglobin A1c % 11.0 H Twenty-seven year Assessment & Plan Assessment & Plan (1) Encounter for initial annual wellness visit (AWV) in Medicare patient: Code(s): Z00.00 - Encounter for general adult medical examination without abnormal findings Plan: Medical wellness checklist reviewed, discussed with patient and updated. Patient willing to do colon cancer screening through Cologuard testing which was ordered. Declined vaccines. Up-to-date with his advanced directives, copy in chart. (2) Essential hypertension: Code(s): I10 - Essential (primary) hypertension Plan: Reinforced importance of taking medicine as directed, will continue current dose of lisinopril 10 mg daily, stressed adherence to a low-salt diet and cutting back on lot of junk food and processed foods. Schedule an appointment for follow-up 09/11/2025 (3) Dyslipidemia: Code(s): E78.5 - Hyperlipidemia, unspecified Plan: Fasting lipids are within normal limits, continued on current dose of atorvastatin 20 mg daily (4) Diabetes mellitus with hyperglycemia: Code(s): E11.65 - Type 2 diabetes mellitus with hyperglycemia Plan: Uncontrolled diabetes mellitus with patient on adherence. Will restart him back on metformin ER 500 mg 1 tablet at night with supper and started also on Mounjaro 2.5 mg injected subcutaneously once a week. Discussed possible side effects of medication which may include increased gassiness bloating, constipation some nausea. Advised to have a bland diet on the day he administers the medication. Orders: Orders Lipid Panel 3 Months E11.65 - Type 2 diabetes mellitus with hyperglycemia, E78.5 - Hyperlipidemia, unspecified, I10 - Essential (primary) hypertension Hemoglobin A1c 3 Months E11.65 - Type 2 diabetes mellitus with hyperglycemia, E78.5 - Hyperlipidemia, unspecified, I10 - Essential (primary) hypertension Vitamin D 25-OH Total 3 Months E11.65 - Type 2 diabetes mellitus with hyperglycemia, E78.5 - Hyperlipidemia, unspecified, I10 - Essential (primary) hypertension Influenza 3933-2018 Immunization 06/11/25 Z23 - Encounter for immunization Microalbumin, Random (w Creat) 3 Months E11.65 - Type 2 diabetes mellitus with hyperglycemia, E78.5 - Hyperlipidemia, unspecified, I10 - Essential (primary) hypertension Basic Metabolic Panel Fasting 3 Months E11.65 - Type 2 diabetes mellitus with hyperglycemia, E78.5 - Hyperlipidemia, unspecified, I10 - Essential (primary) hypertension Aspartate Amino Transferase 3 Months E11.65 - Type 2 diabetes mellitus with hyperglycemia, E78.5 - Hyperlipidemia, unspecified, I10 - Essential (primary) hypertension Alanine Aminotransferase 3 Months E11.65 - Type 2 diabetes mellitus with hyperglycemia, E78.5 - Hyperlipidemia, unspecified, I10 - Essential (primary) hypertension Referrals Cologuard Test Z12.11 - Encounter for screening for malignant neoplasm of colon, Z12.12 - Encounter for screening for malignant neoplasm of rectum Medications: New Mounjaro (tirzepatide) for 4 weeks 2.5 mg (0.5 mL) subcut QWEEK 2.5 mL 3RF 30 days NS E11.65 - Type 2 diabetes mellitus with hyperglycemia, E78.5 - Hyperlipidemia, unspecified, I10 - Essential (primary) hypertension metformin ER (Fortamet) 500 mg PO QPM 60 tabs 5RF E11.65 - Type 2 diabetes mellitus with hyperglycemia Quality Reporting (2019) Depression/Bipolar (159/160/161/177) PHQ-9: Total score: 9 Coding Level of Care Code Medicare First (G0438) Est Pt Level 4 (30364) Diagnoses Encounter for initial annual wellness visit (AWV) in Medicare patient Z00.00 Essential hypertension I10 Dyslipidemia E78.5 Diabetes mellitus with hyperglycemia E11.65 CPT Codes Advance Care Planning - Time spent: 16-45 minutes ([id number]) Advance Care Planning Advance Care Planning discussion: Completed/Scanned Date of discussion: 06/11/25 Who was present: Patient and Forms completed: Health Care Proxy Time spent: 16-45 minutes Actual minutes spent: 2
[2025-06-11 13:04] VITALS: BP 140/100; PULSE 86; RESP 16; TEMP 36.6; O2SAT 97; BMI 34.9
--- OUTSIDE RECORDS SUMMARY | 2025-06-11 15:52 | XMS_ITS | Patient Health Record ---
Author Organization [facility] Address [address] [place] [address] Care Team Providers Care Clay Machine Operator Name Role Phone Jair CORTES, Amber Moncada Primary Care Provider Un available SunRudyd kaiseren Unavailable [phone] Allergies No Known Allergies Reason For Referral No Information Medications Medication SIG (Take, Route, Frequency, Duration) Notes Start Date End Date Status Vitamin D3 Active metFORMIN HCl 500 MG [...] Preulcerative Skin Lesion(s) (L85.1 Active Tylenol Active Immunizations Vaccine Route Administration Date Status [...] Problem Acquired hammer toe of right foot ([id number] ) Other hammer toe(s) (acquired), right foot (M20.41) Active confirmed Problem Acquired hammer toe of left foot (2375980370020844 ) Other hammer toe(s) (acquired), left foot (M20.42) Active confirmed Problem Polyneuropathy due to type 2 diabetes mellitus (848606284) Type 2 diabetes mellitus with polyneuropathy (E11.42) Active confirmed Encounters Encounter Location Date Provider Diagnosis [facility] [address] [address] 01/03/2025 [facility] [address] 03/07/2025 [facility] [address] 05/28/2025 [facility] Plan Of Treatment No Information Insurance Providers Payer Name Payer Address Payer Phone Subscriber Number Group Number Insured Name Patient Relationship to Insured Coverage Start Date Coverage End Date [facility] S[employer] Claims [address] [place] [id number] Winston Be Self - patient is the insured Medical (General) History Medical History History ICD Code Anxiety Arthritis Back,Hip,and Knee pain Depression type II diabetes Headaches/Migraines High blood pressure Chicken pox CPap Surgical History Surgery Date(Month/Year) herniated disk repair L5 S1 head mass
== END 2025-06-11 14:00 | disposition home or self-care (01) ==
LOC: HO.HMCC 12:36
PROVIDERS: PCP Internal Medicine; Visit Provider Internal Medicine
DX: Z00.00 Encounter for general adult medical examination without abnormal findings (principal); E11.65 Type 2 diabetes mellitus with hyperglycemia; I10 Essential (primary) hypertension; E78.5 Hyperlipidemia, unspecified

== ENCOUNTER → 2025-06-11 12:36 | Outpatient (BNVA) | payer MEDICARE, SELFPAY | PROVIDERS: PCP Internal Medicine; Visit Provider Internal Medicine | DX: Z00.00 Encounter for general adult medical examination without abnormal findings (principal); E11.65 Type 2 diabetes mellitus with hyperglycemia; E78.5 Hyperlipidemia, unspecified; G47.33 Obstructive sleep apnea (adult) (pediatric); I10 Essential (primary) hypertension; F32.A Depression, unspecified; Z23 Encounter for immunization; Z91.148 Patient's other noncompliance with medication regimen for other reason | CPT/HCPCS: 90471; 90656; 96127; 99212 ==

== ENCOUNTER 2025-08-23 10:19 | Outpatient (REF) | payer MEDICARE, SELFPAY ==
--- OUTSIDE RECORDS SUMMARY | 2024-03-27 06:15 | XMS_ITS ---
Author Organization [facility] Address [address] [place] [address] Care Team Providers Care Padded Products Inspector Trimmer Name Role Phone Jair CORTES, Amber Moncada Primary Care Provider Un available Ro Park Unavailable [phone] Medications Medication SIG (Take, Route, Frequency, Duration) Notes Start Date End Date Status Tylenol Active traZODone HCl 50 MG 1 tablet at bedtime as needed Orally Once a day; Duration: 30 day(s) Active Extra Depth Orthopedic Shoes (1 Pair) with Customized Heat Molded Multidensity Innersoles (3 Pair) as directed Dx: NIDDM/Polyneuropathy (E11.42), Hammertoe Foot Deformity (M20.41,M20.42), Preulcerative Skin Lesion(s) (L85.1 Active Sertraline HCl 50 MG 1 tablet Orally Onc e a day; Duration: 30 day(s) Active Lisinopril 10 MG 1 tablet Orally Once a day; Duration: 30 day(s) Active metFORMIN HCl 500 MG 1 tablet with a isaiah l Orally Once a day; Duration: 30 day(s) Active Atorvastatin Calcium 20 MG 1 tablet Oral ly Once a day; Duration: 30 day(s) Active Encounters Encounter Location Date Provider Diagnosis [facility] [address] [place] [address] 03/27/2024 Ro Park Plan Of Treatment No Information Progress Notes * Shelli GRANDEOB: 6 (59 yo M)Acc No.[id number]:03/27/2024 Progress Note Patient: Winston PEARSON Provider: Myrna Park DPM :1965 A ge:58 Y S ex:Male Date:03/27/2024 Address:[place], [place] Pcp:Luda Stone Subjective: * Chief Complaints: * [...] Pending * Provider: Myrna Park DPM Date: 0 03/27/2024 Generated for James mccullough/Cristiane/Danny on: 1 10/24/2024 10:22 AM EST
--- OUTSIDE RECORDS SUMMARY | 2025-01-03 05:00 | XMS_ITS ---
Author Organization [facility] Address [address] [place] [address] Care Team Providers Care Croze Cutter Helper Name Role Phone Jair CORTES, Amber Moncada Primary Care Provider Un available Ro Park Unavailable [phone] Ayers Medications Medication SIG (Take, Route, Frequency, Duration) Notes Start Date End Date Status Lisinopril 10 MG 1 tablet Orally Once a day; Duration: 30 day(s) Active Sertraline HCl 50 MG 1 tablet Orally Onc e a day; Duration: 30 day(s) Active Extra Depth Orthopedic Shoes (1 Pair) with Customized Heat Molded Multidensity Innersoles (3 Pair) as directed Dx: NIDDM/Polyneuropathy (E11.42), Hammertoe Foot Deformity (M20.41,M20.42), Preulcerative Skin Lesion(s) (L85.1 Active traZODone HCl 50 MG 1 tablet at bedtime as needed Orally Once a day; Duration: 30 day(s) Active Tylenol Active metFORMIN HCl 500 MG 1 tablet with a isaiah l Orally Once a day; Duration: 30 day(s) Active Vitamin D3 Active Atorvastatin Calcium 20 MG 1 tablet Oral ly Once a day; Duration: 30 day(s) Active Encounters Encounter Location Date Provider Diagnosis [facility] [address] [place] [address] 01/03/2025 Ro Park Plan Of Treatment No Information Progress Notes * Shelli GRANDEOB: 6 (59 yo M)Acc No.[id number]:01/03/2025 Progress Note Patient: O LIVO, Winston Provider: Myrna Park DPM :1965 A ge:59 Y S ex:Male Date:01/03/2025 Address:[address] [facility] Pcp:Luda Stone Subjective: * Chief Complaints: * [address] Ayers[address] * Medical History: A nxiety, Arthritis, Back,Hip,and Knee pain, Depression, type II diabetes, Headaches/Migraines, High blood pressure, Chicken pox, CPap. * Medications: T aking Vitamin D3 , Taking Atorvastatin Calcium 20 MG Tablet 1 tablet [...] * Provider: Myrna Park DPM Date: 0 01/03/2025 Generated for James mccullough/Cristiane/Moreitting on: 1 10/24/2024 10:22 AM EST
--- OUTSIDE RECORDS SUMMARY | 2025-03-07 08:45 | XMS_ITS ---
Author Organization [facility] Address [address] [place] [address] Care Team Providers Care Bobbin Collector Name Role Phone Jair CORTES, Amber Moncada Primary Care Provider Un available Ro Park Unavailable [phone] Medications Medication SIG (Take, Route, Frequency, Duration) [...] Active Encounters Encounter Location Date Provider Diagnosis [facility] [address] [place] [address] 03/07/2025 Ro Park Plan Of Treatment No Information Progress Notes * Shelli GRANDEOB: 6 (59 yo M)Acc No.[id number]:03/07/2025 Progress Note Patient: O Winston PAZ Provider: Myrna Park DPM :1965 A ge:59 Y S ex:Male Date:03/07/2025 Address:[place], [id number] Pcp:Luda Stone Subjective: * Chief Complaints: * [...] 03/07/2025 Generated for James mccullough/Cristiane/Danny on: 1 10/24/2024 10:22 AM EST
--- OUTSIDE RECORDS SUMMARY | 2025-05-28 04:15 | XMS_ITS ---
Author Organization [facility] Address [address] [place] [address] Care Team Providers Care Schedule Checker Name Role Phone Jair CORTES, Amber Moncada Primary Care Provider Un available Ro Park Unavailable [phone] Medications Medication SIG (Take, Route, Frequency, Duration) [...] Active Encounters Encounter Location Date Provider Diagnosis [facility] [address] [place] [address] 05/28/2025 Ro Park Plan Of Treatment No Information Progress Notes * Shelli GRANDEOB: 6 (59 yo M)Acc No.[id number]:05/28/2025 Progress Note Patient: O Winston PAZ Provider: Myrna Park DPM :1965 A ge:59 Y S ex:Male Date:05/28/2025 Address:[place], [place] Pcp:Luda Stone Subjective: * Chief Complaints: * [...] Date: 1 Generated for James mccullough/Cristiane/Danny on: 10/24/2024 10:21 AM EST
--- OUTSIDE RECORDS SUMMARY | 2025-08-23 10:22 | XMS_ITS | Patient Health Record ---
Author Organization [facility] Address [address] [place] [address] Care Team Providers Care Manager Investment Name Role Phone Jair CORTES, Amber Moncada Primary Care Provider Un available SunRuddy kaiseren Unavailable [phone] Allergies No Known Allergies Reason For Referral [...] Problem Acquired hammer toe of right foot ([id number] ) Other hammer toe(s) (acquired), right foot (M20.41) Active confirmed Problem Acquired hammer toe of left foot (8685718492180348 ) Other hammer toe(s) (acquired), left foot (M20.42) Active confirmed Problem Polyneuropathy due to type 2 diabetes mellitus (389532241) Type 2 diabetes mellitus with polyneuropathy (E11.42) Active confirmed Encounters Encounter Location Date Provider Diagnosis [facility] [address] [address] 01/03/2025 [facility] [address] 03/07/2025 [facility] [address] 05/28/2025 [facility] Plan Of Treatment No Information Insurance Providers Payer Name Payer Address Payer Phone Subscriber Number Group Number Insured Name Patient Relationship to Insured Coverage Start Date Coverage End Date [facility] SCO Claims [address] [place] [id number] Winston Be Self - patient is the insured Medical (General) History Medical History History ICD Code Anxiety Arthritis Back,Hip,and Knee pain Depression type II diabetes Headaches/Migraines High blood pressure Chicken pox CPap Surgical History Surgery Date(Month/Year) herniated disk repair L5 S1 head mass
[2025-08-23 11:36] LABS: Alanine Aminotransferase 24 U/L (0-40); Anion Gap 13 (12-20); Aspartate Amino Transferase 21 U/L (5-37); Blood Urea Nitrogen 19 mg/dL (9-16); Calcium 9.0 mg/dL (8.4-10.2); Carbon Dioxide 24 mmol/L (22-29); Chloride 108 mmol/L (96-108); Cholesterol 139 mg/dL (<200); Estimated Glomerular Filt Rate > 60; HDL Cholesterol 44 mg/dL (>40); Potassium 3.6 mmol/L (3.3-5.1); Sodium 141 mmol/L (135-145); Triglycerides 80 mg/dL (<150)
== END 2025-08-23 10:20 | disposition home or self-care (01) ==
LOC: HO.HMGCLDS 10:19
PROVIDERS: PCP Internal Medicine; Visit Provider Internal Medicine
DX: I10 Essential (primary) hypertension (principal); E78.5 Hyperlipidemia, unspecified; E11.65 Type 2 diabetes mellitus with hyperglycemia; Z13.21 Encounter for screening for nutritional disorder
CPT/HCPCS: 36415; 80048; 80061; 82306; 83036; 84450; 84460

== ENCOUNTER 2025-08-27 09:53 | Outpatient (AMB) | payer MEDICARE, MEDICAID, SELFPAY ==
--- OUTSIDE RECORDS SUMMARY | 2024-03-27 06:15 | XMS_ITS ---
Author Organization [facility] Address [address] [place] [address] Care Team Providers Care Aluminum Pourer Name Role Phone Jair CORTES, Amber Moncada Primary Care Provider Un available Ro Park Unavailable [phone] Medications Medication SIG (Take, Route, Frequency, Duration) [...] Active Encounters Encounter Location Date Provider Diagnosis [facility] [address] [place] [address] 03/27/2024 Ro Park Plan Of Treatment No Information Progress Notes * Shelli GRANDEOB: 6 (59 yo M)Acc No.[id number]:03/27/2024 Progress Note Patient: Winston PEARSON Provider: Myrna Park DPM :1965 A ge:58 Y S ex:Male Date:03/27/2024 Address:[place], [place] Pcp:Luda Stone Subjective: * Chief Complaints: * [...] DPM Date: 0 03/27/2024 Generated for James mccullough/Cristiane/Moreitting on: 1 10:39 AM EST
--- OUTSIDE RECORDS SUMMARY | 2025-01-03 05:00 | XMS_ITS ---
Author Organization [facility] Address [address] [place] [address] Care Team Providers Care Transcription Coordinator Name Role Phone Jair CORTES, Amber Moncada Primary Care Provider Un available Ro Park Unavailable [phone] Ayers Medications Medication [...] Active Encounters Encounter Location Date Provider Diagnosis [facility] [address] [place] [address] 01/03/2025 Ro Park Plan Of Treatment No Information Progress Notes * Shelli GRANDEOB: 6 (59 yo M)Acc No.[id number]:01/03/2025 Progress Note Patient: O LIVO, Winston Provider: Myrna Park DPM :1965 A ge:59 Y S ex:Male Date:01/03/2025 Address:[address] [facility] Pcp:Luda Stone Subjective: * Chief Complaints: * [...] 01/03/2025 Generated for James mccullough/Cristiane/Moreitting on: 1 10:39 AM EST
--- OUTSIDE RECORDS SUMMARY | 2025-03-07 08:45 | XMS_ITS ---
Author Organization [facility] Address [address] [place] [address] Care Team Providers Care Puttier Name Role Phone Jair CORTES, Amber Moncada Primary Care Provider Un available Ro Park Unavailable [phone] Medications Medication SIG (Take, Route, Frequency, Duration) Notes Start Date End Date Status Sertraline HCl 50 MG 1 tablet Orally Onc e a day; Duration: 30 day(s) Active Lisinopril 10 MG 1 tablet Orally Once a day; Duration: 30 day(s) Active Tylenol Active traZODone HCl 50 MG 1 tablet at bedtime as needed Orally Once a day; Duration: 30 day(s) Active Extra Depth Orthopedic Shoes (1 Pair) with Customized Heat Molded Multidensity Innersoles (3 Pair) as directed Dx: NIDDM/Polyneuropathy (E11.42), Hammertoe Foot Deformity (M20.41,M20.42), Preulcerative Skin Lesion(s) (L85.1 Active metFORMIN HCl 500 MG 1 tablet with a isaiah l Orally Once a day; Duration: 30 day(s) Active Atorvastatin Calcium 20 MG 1 tablet Oral ly Once a day; Duration: 30 day(s) Active Vitamin D3 Active Encounters Encounter Location Date Provider Diagnosis [facility] [address] [place] [address] 03/07/2025 Ro Park Plan Of Treatment No Information Progress Notes * Shelli GRANDEOB: 6 (59 yo M)Acc No.[id number]:03/07/2025 Progress Note Patient: O Winston PAZ Provider: Myrna Park DPM :1965 A ge:59 Y S ex:Male Date:03/07/2025 Address:[place], [place] Pcp:Luda Stone Subjective: * Chief Complaints: * * Medical History: * Medications: T aking Vitamin D3 , [...] * Provider: Myrna Park DPM Date: 0 03/07/2025 Generated for James mccullough/Cristiane/Danny on: 1 10:38 AM EST
--- OUTSIDE RECORDS SUMMARY | 2025-05-28 04:15 | XMS_ITS ---
Author Organization [facility] Address [address] [place] [address] Care Team Providers Care Anesthesiology Crna Name Role Phone Jair CORTES, Amber Moncada Primary Care Provider Un available Ro Park Unavailable [phone] Medications Medication SIG (Take, Route, Frequency, Duration) Notes Start Date End Date Status Sertraline HCl 50 MG 1 tablet Orally Onc e a day; Duration: 30 day(s) Active Lisinopril 10 MG 1 tablet Orally Once a day; Duration: 30 day(s) Active traZODone HCl 50 MG 1 tablet at bedtime as needed Orally Once a day; Duration: 30 day(s) Active Extra Depth Orthopedic Shoes (1 Pair) with Customized Heat Molded Multidensity Innersoles (3 Pair) as directed Dx: NIDDM/Polyneuropathy (E11.42), Hammertoe Foot Deformity (M20.41,M20.42), Preulcerative Skin Lesion(s) (L85.1 Active Tylenol Active Vitamin D3 Active metFORMIN HCl 500 MG 1 tablet with a isaiah l Orally Once a day; Duration: 30 day(s) Active Atorvastatin Calcium 20 MG 1 tablet Oral ly Once a day; Duration: 30 day(s) Active Encounters Encounter Location Date Provider Diagnosis [facility] [address] [place] [address] 05/28/2025 Ro Park Plan Of Treatment No Information Progress Notes * Shelli GRANDEOB: 6 (59 yo M)Acc No.[id number]:05/28/2025 Progress Note Patient: O Winston PAZ Provider: Myrna Park DPM :1965 A ge:59 Y S ex:Male Date:05/28/2025 Address:[place], [place] Pcp:Luda Stone Subjective: * Chief Complaints: * [...] Pending * Provider: Myrna Park DPM Date: 1 Generated for James mccullough/Cristiane/Danny on: 10:38 AM EST
--- NOTE | 2025-08-27 10:01 | A.OFFPC_ITS ---
Vital Signs 08/27/25 10:02 Height 5 ft 11 in Weight 248 lb BMI 34.6 BP 138/92 H Blood Pressure Location Lt brachial Position Sitting Pulse 82 Pulse Source Pulse Oximeter Pulse Oximetry (%) 97 Intake Visit Reasons: f/u DM Allergies No Known Allergies (No Known Allergies*) Allergy (Verified 08/27/25 10:28) Medication List - Last Reconciled 08/27/25 by Amber Adam MD atorvastatin 20 mg PO DAILY blood sugar diagnostic (FreeStyle Lite Strips) test blood sugar once a day blood-glucose meter (FreeStyle Lite Meter kit) check fasting blood sugar once a day as directed diclofenac sodium 1% 2 grams topical QID PRN lancets (FreeStyle Lancets) test blood sugar once a day lisinopril 10 mg PO DAILY metformin ER (Fortamet) 500 mg PO QPM Mounjaro (tirzepatide) 2.5 mg (0.5 mL) subcut QWEEK 30 days NS sertraline 100 mg PO DAILY trazodone 50 mg PO BEDTIME PRN Tobacco use date assessed: 08/27/25 Dental Screening Dental Screen Date: 08/27/25 Did you have a dental visit in the last 12 months?: Yes Did you have a dental problem in the last 6 months where you did not have access to dental care?: No Was dental information given to patient?: Patient has dentist HPI f/u DM HPI Details The patient is a 59-year-old male presenting for follow-up on his Type 2 diabetes. He currently takes metformin once daily and Mounjaro 2.5. Since starting Mounjaro three months ago, his HbA1c has decreased from 11% to 8.6%. Prior to the increase to 11%, his HbA1c was 6.8%, with the rise attributed to a period of poor dietary control. His morning blood glucose reading today was 94 mg/dL. He denies any issues such as diarrhea with his current metformin dose. He has cut back on carbohydrates and lost 2 pounds since last visit. He reports experiencing constipation and bloating, which is attributed to Mounjaro slowing gastric emptying. He also reports profuse sweating at bedtime. His blood pressure has improved, and his cholesterol levels have also significantly improved, with triglycerides at 80 mg/dL and LDL at 79 mg/dL. His labs indicate low vitamin D. Regarding immunizations, he has received the flu and pneumonia vaccines but is due for the second dose of the shingles vaccine and a tetanus shot. [facility] Medical History Diabetes mellitus with hyperglycemia Diabetes mellitus, without long-term current use of insulin Vitamin D deficiency COVID-19 vaccine series declined Colonoscopy refused Depression Obesity (BMI 30.0-34.9) Herniated intervertebral disc of lumbar spine Fatty liver History of seborrheic dermatitis Dyslipidemia Essential hypertension Surgical History History of nasal surgery Status post lumbar spinal fusion Family History Father CAD (coronary artery disease) Mother Hypertension Lupus (systemic lupus erythematosus) Cancer Sister Mental health disorder Social History Housing: Apartment Alcohol intake: never Patient Tobacco Use Status: Never used Tobacco e-Cigarette/Vaping Use: Never Used Second Hand Smoke Exposure: No service: No Current occupational status: employed Cognitive needs: No Hearing needs: No Vision needs: No Questionnaire Thrive Questionnaire Date Thrive assessed: 08/27/25 I am a: Patient What is your living situation today?: I have a steady place to live Within the past 12 months, did the food you bought not last and you didn't have the money to get more?: I choose not to answer this question Within the past 12 months, did you worry whether your food would run out before you got money to buy more?: I choose not to answer this question Do you have trouble paying for medicines?: I choose not to answer this question Do you have trouble getting transportation to medical appointments?: No Do you have trouble paying your heating and electricity bill?: No Do you have trouble taking care of your child, family member or friend?: I choose not to answer this question Do you have trouble with day-to-day activities such as bathing, preparing meals, shopping, managing finances, etc.?: No Are you currently unemployed and looking for a job?: Yes Are you interested in more education?: Yes Please select the resources that you would like help with: None Currently or been in a relationship where the following occur: No concerns reported THRIVE Score: 0 AUDIT C Alcohol Use Questionnaire (AUDIT-C) 1. How often do you have a drink containing alcohol?: Never 3. How often do you have six or more drinks on one occasion?: Never Total Score: 0 Score Reviewed/Action Taken: Yes DAYANNA-7 AMB Questionnaire DAYANNA-7 Date DAYANNA - 7 assessed: 08/27/25 Feeling nervous, anxious, or on edge: 1 = Several days Not being able to stop or control worryin = Several days Worrying too much about different things: 1 = Several days Trouble relaxin = Several days Being so restless that it is hard to sit still: 1 = Several days Becoming easily annoyed or irritable: 1 = Several days Feeling afraid as if something awful might happen: 0 = Not at all Total DAYANNA-7 score (0-4 normal; 5-9 mild; 10-14 moderate; 15-21 severe): 6 Source: Developed by Drs. Soham Ochoa, Jeaneth Maurice, Moises Larios and colleagues, with an educational gigi from [employer]. DAYANNA-7 Assessment Billing DAYANNA-7 Assessment Tool: DAYANNA-7 Assessment 47163 Review of Systems Const Denies headache(s), Denies malaise and Denies poor appetite Eyes Details: Will be scheduling appointment with Dr. Marie for his diabetic retinopathy exam ENT Denies dizziness, Denies headache(s) and Denies nasal congestion Card Denies chest pain, Denies lightheadedness and Denies dyspnea Resp Denies cough and Denies dyspnea GI Denies abdominal pain, Denies change in bowel habits, Denies heartburn and Denies nausea Reports no additional complaints Musc Reports no additional complaints Skin/Breast Denies rash Neuro Denies dizziness and Denies headache(s) Endo Details: Sees [facility] in [place], has diabetic shoes, occasional numbness in toes Reports no additional complaints Robles/Lymph Reports no additional complaints Aller/Immun Reports no additional complaints Physical exam (Primary Care) Vital Signs: Last Vital Signs Pulse 82 08/27/25 10:02 BP 138/92 H 08/27/25 10:02 Pulse Ox 97 08/27/25 10:02 BMI result Body Mass Index 34.6 Tobacco/Smoking Status: Tobacco use Status Tobacco use date assessed 08/27/25 08/27/25 10:03 Patient Tobacco Use Status Never used Tobacco 08/27/25 10:03 e-Cigarette/Vaping Use Never Used 08/27/25 10:03 Thrive Assessment: Date of Thrive Assessment Date Thrive assessed 08/27/25 08/27/25 10:03 Currently or been in a relationship where the following occur: No concerns reported Const General: comfortable, no acute distress and alert Nutritional Appearance: obese Orientation/consciousness: patient oriented x3 HENNJ Mouth: Normal oral and palatal mucosa present, oropharynx normal and moist mucous membranes Eyes General: appearance normal, both eyes and all related structures Neck Neck: Yes full ROM, Yes no lymphadenopathy and Yes supple Resp Auscultation: clear to auscultation bilaterally Cardio Palpation: normal PMI Rhythm: regular rhythm Heart sounds: S1 normal heart sound present and S2 normal heart sound present GI Palpation (GI): Soft to palpation, nontender and no guarding General: Yes no CVA tenderness Male General Exam: Yes normal external exam Back/Spine/Pelvis Back: no CVA tenderness Skin General skin exam: no rashes or lesions noted Neuro General: patient oriented x3, gait normal, tone normal, moves all extremities, Normal light touch and pain sensation, no focal motor deficits and CN's II-XI intact bilaterally Extrem Other: No swelling in toes of both feet, intact sensation, normal range of motion General: Yes full ROM, Yes no joint enlargement, Yes no pedal edema, Yes no calf tenderness and Yes normal gait Psych Appearance: grossly normal Mental Status: mental status grossly normal Affect: normal affect Attitude: cooperative Immunizations Boostrix Tdap 2.5 Lf unit-8 mcg-5 Lf/0.5 mL intramuscular syringe Performing Provider: Amber Adam MD Performing Location: [facility] Administered by: CARLA Hernandez on 08/27/25 10:43 Dose Route Admin Location Dispensed Lot Number Expiration Date [facility] [employer] Techn[employer] 0.5 mL IM Left Deltoid 0.5 mL [id number] 02/07/28 [id number] [place] Total Dispensed Waste 0.5 mL 0 % VIS Given Date VIS Provided VIS Publication Date 08/27/25 Single Vaccine 21 Eligibility Eligibility Date Funding Source Not [facility] Eligible 08/27/25 Private Results Reviewed Results Reviewed: Name: Winston Be Age/Sex: 59/M : 1965 Unit#: [id number] Attend Dr: Amber Adam MD Re08/23/25 Status: DEP REF Location: [facility] Disch: SPEC : [id number] NENA: 08/23/25 STATUS: COMP REQ : [id number] RECD: 08/23/25-[address]: Amber Adam MD COMP: 08/23/25 ENTERED: 08/23/[address]: ORDERED: Met Prof Fast, AST, ALT, Lipid Panel, Vitamin D 25-OH Test Result Flag Reference Sodium 141 135-145 mmol/L Potassium 3.6 3.3-5.1 mmol/L CL 108 96-108 mmol/L CO2 24 22-29 mmol/L Gap 13 12-20 BUN 19 H 9-16 mg/dL Creat 0.91 0.5-1.4 mg/dL eGFR > 60 Chronic Kidney Disease: Estimated GFR < 60 mL/min/1.73m2 Severe Kidney Disease: Estimated GFR < 15 mL/min/1.73m2 FBS 114 H 60-99 mg/dL A fasting glucose from 100-125 mg/dl is considered impaired (pre-diabetes). CA 9.0 8.4-10.2 mg/dL AST (GOT) 21 5-37 U/L ALT (GPT) 24 0-40 U/L Triglyceride 80 <150 mg/dL Desirable Triglyceride: less than 150 mg/dL Borderline High Triglyceride 150-199 mg/dL High Triglyceride: 200-499 mg/dL Very High Triglyceride: greater than or equal to 5OO mg/dL Cholesterol 139 <200 mg/dL Desirable Cholesterol: less than 200 mg/dL Borderline High Cholesterol: 200-239 mg/dL High Cholesterol: greater than 239 mg/dL LDL Calculated 79 <100 mg/dL Desirable LDL: less than 100 mg/dL Near Optimal/Above Optimal LDL: 110-129 mg/dL Borderline High LDL: 130-159 mg/dL High LDL: 160-189 mg/dL Very High LDL: greater than or equal to 190 mg/dL HDL 44 >40 mg/dL Desirable HDL: greater than 40 mg/dL Note: This HDL assay may give artificially low results in patients with liver disease. Vitamin D 25-OH 24.3 L >30 ng/mL Health Based Reference Values* < 20 ng/mL Deficient 20-30 ng/mL Insufficient > 30 ng/mL Sufficient Laboratory Tests 11/15/22 05/15/23 08/23/25 13:16 13:28 10:24 Hgb A1c (Clinic) 6.3 H 6.2 H Estimat Average Glucose 200 Hemoglobin A1c % 8.6 H Coding Level of Care Code Est Pt Level 4 (25949) Diagnoses Dyslipidemia E78.5 Obesity (BMI 30.0-34.9) E66.9 Essential hypertension I10 Vitamin D deficiency E55.9 Diabetes mellitus, without long-term current use of insulin E11.9 Diabetes mellitus with hyperglycemia E11.65 Additional Codes DAYANNA-7 Assessment Billing - DAYANNA-7 Assessment Tool: DAYANNA-7 Assessment 50541 ([id number]) Assessment & Plan Assessment & Plan (1) Dyslipidemia: Code(s): E78.5 - Hyperlipidemia, unspecified Category: Medical Plan: Noted marked improvement in his cholesterol levels since starting Mounjaro. Will continue on Mounjaro, atorvastatin, and reinforced importance adherence to healthy eating habits and regular exercise. (2) Obesity (BMI 30.0-34.9): Code(s): E66.9 - Obesity, unspecified Category: Medical Plan: Has been losing weight since starting Mounjaro (3) Essential hypertension: Code(s): I10 - Essential (primary) hypertension Category: Medical Plan: Continued on lisinopril 10 mg daily (4) Vitamin D deficiency: Code(s): E55.9 - Vitamin D deficiency, unspecified Category: Medical Plan: Last vitamin-D level was low. Advised to start taking [id number]-tmu-[id number] vitamin D3 at least 2000 units daily (5) Diabetes mellitus, without long-term current use of insulin: Code(s): E11.9 - Type 2 diabetes mellitus without complications Category: Medical Plan: Recent lab results reviewed with patient, with sugar and hemoglobin A1c improving but still not at goal. Continued current dose of metformin ER and Mounjaro. continue to check fasting blood sugar at home, maintain log and bring to next appointment for review. Reinforced diabetic diet and regular exercise with patient. Counseled regarding importance of yearly diabetes retinopathy screening. Patient advised to inspect feet daily, for any signs of injury, callus or infection. Compliance with diet and regular exercise again stressed. Blood pressure goal is less than 130/80, goal LDL is less than 100 and goal hemoglobin A1c is less than 7% follow-up appointment made in-3--months, after fasting labs done. (6) Diabetes mellitus with hyperglycemia: Code(s): E11.65 - Type 2 diabetes mellitus with hyperglycemia Category: Medical Plan: Continued on metformin and Mounjaro Orders: Orders Microalbumin, Random (w Creat) 10/26/25 E11.65 - Type 2 diabetes mellitus with hyperglycemia, E11.9 - Type 2 diabetes mellitus without complications, E55.9 - Vitamin D deficiency, unspecified, E66.9 - Obesity, unspecified, E78.5 - Hyperl ipidemia, unspecified, I10 - Essential (primary) hypertension Basic Metabolic Panel Fasting 10/26/25 E11.65 - Type 2 diabetes mellitus with hyperglycemia, E11.9 - Type 2 diabetes mellitus without complications, E55.9 - Vitamin D deficiency, unspecified, E66.9 - Obesity, unspecified, E78.5 - Hyperlipidemia, unspecified, I10 - Essential (primary) hypertension Alanine Aminotransferase 10/26/25 E11.65 - Type 2 diabetes mellitus with hyperglycemia, E11.9 - Type 2 diabetes mellitus without complications, E55.9 - Vitamin D deficiency, unspecified, E66.9 - Obesity, unspecified, E78.5 - Hyperlipidemia, unspecified, I10 - Essential (primary) hypertension TDaP Immunization 08/27/25 Z23 - Encounter for immunization Aspartate Amino Transferase 10/26/25 E11.65 - Type 2 diabetes mellitus with hyperglycemia, E11.9 - Type 2 diabetes mellitus without complications, E55.9 - Vitamin D deficiency, unspecified, E66.9 - Obesity, unspecified, E78.5 - Hyperlipidemia, unspecified, I10 - Essential (primary) hypertension Lipid Panel 10/26/25 E11.65 - Type 2 diabetes mellitus with hyperglycemia, E11.9 - Type 2 diabetes mellitus without complications, E55.9 - Vitamin D deficiency, unspecified, E66.9 - Obesity, unspecified, E78.5 - Hyperlipidemia, unspecified, I10 - Essential (primary) hypertension Hemoglobin A1c 10/26/25 E11.65 - Type 2 diabetes mellitus with hyperglycemia, E11.9 - Type 2 diabetes mellitus without complications, E55.9 - Vitamin D deficiency, unspecified, E66.9 - Obesity, unspecified, E78.5 - Hyperlipidemia, unspecified, I10 - Essential (primary) hypertension Vitamin D 25-OH Total 10/26/25 E11.65 - Type 2 diabetes mellitus with hyperglycemia, E11.9 - Type 2 diabetes mellitus without complications, E55.9 - Vitamin D deficiency, unspecified, E66.9 - Obesity, unspecified, E78.5 - Hyperlipidemia, unspecified, I10 - Essential (primary) hypertension Medications: Refilled Mounjaro (tirzepatide) for 4 weeks 2.5 mg (0.5 mL) subcut QWEEK 2 mL 5RF 30 days NS E11.65 - Type 2 diabetes mellitus with hyperglycemia, E78.5 - Hyperlipidemia, unspecified, I10 - Essential (primary) hypertension
[2025-08-27 10:02] VITALS: BP 138/92; PULSE 82; O2SAT 97; BMI 34.6
--- OUTSIDE RECORDS SUMMARY | 2025-08-27 10:39 | XMS_ITS | Patient Health Record ---
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 Name Role Phone Jair CORTES, Amber Moncada Primary Care Provider Un available SunRuddy kaiseren Unavailable [phone] Allergies No Known Allergies Reason For Referral [...] Problem Acquired hammer toe of right foot ([id number] ) Other hammer toe(s) (acquired), right foot (M20.41) Active confirmed Problem Acquired hammer toe of left foot ([id number] ) Other hammer toe(s) (acquired), left foot (M20.42) Active confirmed Problem Polyneuropathy due to type 2 diabetes mellitus ([id number]) Type 2 diabetes mellitus with polyneuropathy (E11.42) Active confirmed Encounters Encounter Location Date Provider Diagnosis [facility] [address] [address] 01/03/2025 [facility] [address] 03/07/2025 [facility] [address] 05/28/2025 [facility] Plan Of Treatment No Information Insurance Providers Payer Name Payer Address Payer Phone Subscriber Number Group Number Insured Name Patient Relationship to Insured Coverage Start Date Coverage End Date [facility] [employer] Claims [address] [place] [id number] Winston Be Self - patient is the insured Medical (General) History Medical History History ICD Code Anxiety Arthritis Back,Hip,and Knee pain Depression type II diabetes Headaches/Migraines High blood pressure Chicken pox CPap Surgical History Surgery Date(Month/Year) herniated disk repair L5 S1 head mass
== END 2025-08-27 10:46 | disposition home or self-care (01) ==
LOC: HO.HMCC 09:54
PROVIDERS: PCP Internal Medicine; Visit Provider Internal Medicine
DX: E11.9 Type 2 diabetes mellitus without complications (principal); E78.5 Hyperlipidemia, unspecified; E66.9 Obesity, unspecified; I10 Essential (primary) hypertension; E55.9 Vitamin D deficiency, unspecified

== ENCOUNTER → 2025-08-27 09:53 | Outpatient (BNVA) | payer MEDICARE, SELFPAY | PROVIDERS: PCP Internal Medicine; Visit Provider Internal Medicine | DX: E11.65 Type 2 diabetes mellitus with hyperglycemia (principal); I10 Essential (primary) hypertension; E66.9 Obesity, unspecified; E78.5 Hyperlipidemia, unspecified; Z79.85 Long-term (current) use of injectable non-insulin antidiabetic drugs; Z13.39 Encounter for screening examination for other mental health and behavioral disorders; Z23 Encounter for immunization; Z68.34 Body mass index [BMI] 34.0-34.9, adult | CPT/HCPCS: 90471; 90715; 96127; 99212 ==